=== PATIENT | female | born 1980 | race Asian ===

== ENCOUNTER 2021-06-26 10:00 | Inpatient (IN) | payer OTHER, MEDICAID, SELFPAY ==
[2021-06-26] VITALS (69 sets, daily range): BP systolic 169–257; BP diastolic 86–177; PULSE 78–118; RESP 19–46; TEMP 36.1–36.7; O2SAT 89–99; BMI 44.8
--- NOTE | 2021-06-26 10:10 | DI.RAD.S_ITS ---
PROCEDURE: XR CHEST 1V INDICATIONS: SOB TECHNIQUE: One view of the chest was acquired. COMPARISON: [facility], , CHEST 1 VIEW, 09/16/2016, 0:11. FINDINGS: Surgical changes and devices: None. Lungs and pleura: The left costophrenic sulcus is obscured. The remaining lung zones are well aerated. No pneumothorax or right pleural effusion. Mediastinum: Prominence of the cardiac silhouette, partially exaggerated by technique. Bones and chest wall: No suspicious bony lesions. Overlying soft tissues appear unremarkable. IMPRESSION: No acute cardiopulmonary abnormality. Dictated by: Israel Hope M.D. on 06/26/2021 at 10:31 Approved by: Israel Hope M.D. on 06/26/2021 at 10:32
--- NOTE | 2021-06-26 10:21 | ED.GENADULT ---
HPI - General Adult General Chief complaint: Shortness of Breath/Dyspnea Stated complaint: Trouble breathing Time Seen by Provider: 06/26/21 10:08 Source: patient Mode of arrival: EMS History of Present Illness HPI narrative: Patient is a 41-year-old female with a history of high blood pressure but has not been on any medication for ?sometime ?also has a history of asthma. Is here for evaluation shortness breath. She has had shortness of breath for many weeks if not months. She states that over the past 24 hours her symptoms seem to get worse. No cough. No fevers. Is not wheezing. No recent travel. No chest pain. She states she is having some anxiety. Does have a history of anxiety but she feels that her anxiety is the result of the shortness of breath not causing the shortness of breath. No lower extremity swelling. Has not tried anything for her symptoms prior to arrival. Related Data Previous Rx's Medication Instructions Recorded albuterol sulfate 90 mcg/actuation 2 puff INH Q4HP PRN #1 inh 07/05/16 aerosol inhaler (Ventolin HFA) Allergies Allergy/AdvReac Type Severity Reaction Status Date / Time No Known Drug Allergies Allergy Verified 06/26/21 10:10 Review of Systems Constitutional Constitutional: Reports system reviewed and no additional complaints, except as documented Cardiovascular Cardiovascular: Reports as per HPI and Reports system reviewed and no additional complaints, except as documented Respiratory Respiratory: Reports as per HPI and Reports system reviewed and no additional complaints, except as documented Gastrointestinal Gastrointestinal: Reports as per HPI and Reports system reviewed and no additional complaints, except as documented Integumentary/Breasts Skin/Breast: Reports system reviewed and no additional complaints, except as documented Psychiatric Psychiatric: Reports system reviewed and no additional complaints, except as documented and Reports as per HPI Hematologic/Lymphatic On Anticoagulants: No Patient History Medical History Asthma Hypertension Social History Smoking Status: Former smoker alcohol intake: current Smoking Status: Former smoker alcohol intake frequency: holidays/special occasions only Substance Use Type: does not use Exam Initial Vital Signs Initial Vital Signs: Vital Signs Temperature 98.0 F 06/26/21 10:05 Pulse Rate 118 H 06/26/21 10:05 Respiratory Rate 38 H 06/26/21 10:05 Blood Pressure 257/167 H 06/26/21 10:05 Pulse Oximetry 98 06/26/21 10:05 HENMT Head: normal to inspection and normocephalic Resp Effort & Inspection: not labored and tachypneic Auscultation: clear to auscultation bilaterally Cardio Rate: regular rate Rhythm: regular rhythm GI Inspection: normal to inspection Palpation: soft Skin General: no rashes or lesions noted Neuro General: patient alert, patient awake and patient oriented x3 Extrem General: no pedal edema Psych Other: Anxious appearing Course Orders Ordered: ED Orders 06/26/21 10:10 XR chest 1V Stat COVID19 -Nasal swab/Pre-Proc Stat EKG-12 Lead Stat 06/26/21 10:22 BNP [NT-proBNP (BNP-Adult 18+)] Stat Basic Metabolic Panel Stat Complete Blood Count AUTO DIFF Stat Troponin & CK Cardiac Panel Stat 06/26/21 10:28 D Dimer Stat Partial Thromboplastin Time Stat Prothrombin Time INR Stat 06/26/21 11:44 CT angio chest PE protocol Stat 06/26/21 13:29 Troponin I Stat Budesonide (Budesonide 0.5 Mg/2 Ml Neb) 0.5 mg INH RTBID HANNA Enoxaparin Sodium (Enoxaparin 40 Mg/0.4 Ml Syringe) 40 mg SUBCUT DAILY HANNA Famotidine (Famotidine 20 Mg/2 Ml Vial) 20 mg IV NOW [facility] Last Admin: 06/26/21 14:36 Dose: 20 mg Documented by: OMERO Discontinued Medications Albuterol (Albuterol 2.5 Mg/3 Ml Neb (Adult)) 5 mg INH NOW ONE Stop: 06/26/21 14:32 Last Admin: 06/26/21 14:37 Dose: 5 mg Documented by: OMERO Albuterol/Ipratropium (Albuterol/Ipratropium 3 Ml Ampul) 6 ml INH NOW ONE Stop: 06/26/21 14:46 Last Admin: 06/26/21 14:54 Dose: 6 ml Documented by: TERRY Aspirin (Aspirin 81 Mg Chew Tab) 324 mg PO NOW ONE Stop: 06/26/21 12:37 Last Admin: 06/26/21 12:58 Dose: 324 mg Documented by: EMILY Furosemide (Furosemide 40 Mg/4 Ml Vial) 40 mg IV NOW ONE Stop: 06/26/21 12:37 Last Admin: 06/26/21 12:58 Dose: 40 mg Documented by: EMILY Sodium Chloride (Normal Saline 0.9%) 1,000 mls @ 500 mls/hr IV BOLUS ONE Stop: 06/26/21 12:21 Last Infusion: 06/26/21 11:37 Dose: 0 mls/hr Documented by: Admin: 06/26/21 10:29 Dose: 500 mls/hr Documented by: EMILY Nitroglycerin (Nitroglycerin) 50 mg in 250 mls @ 3 mls/hr IV TITRATE HANNA; Protocol Last Titration: 06/26/21 13:55 Dose: 0 mcg/min, 0 mls/hr Documented by: Titration: 06/26/21 13:52 Dose: 0 mcg/min, 0 mls/hr Documented by: Titration: 06/26/21 13:45 Dose: 20 mcg/min, 6 mls/hr Documented by: Admin: 06/26/21 13:33 Dose: 10 mcg/min, 3 mls/hr Documented by: OMERO Nicardipine HCl 25 mg/ Sodium (Chloride) 250 mls @ 50 mls/hr IV TITRATE HANNA; Protocol Last Titration: 06/26/21 14:55 Dose: 0 mg/hr, 0 mls/hr Documented by: Titration: 06/26/21 14:31 Dose: 0 mg/hr, 0 mls/hr Documented by: Titration: 06/26/21 14:13 Dose: 7.5 mg/hr, 75 mls/hr Documented by: Admin: 06/26/21 14:02 Dose: 5 mg/hr, 50 mls/hr Documented by: OMERO Labetalol HCl (Labetalol 20 Mg/4 Ml Syringe) 10 mg IV NOW ONE Stop: 06/26/21 10:25 Last Admin: 06/26/21 10:30 Dose: 10 mg Documented by: EMILY Labetalol HCl (Labetalol 100 Mg Tablet) 200 mg PO NOW ONE Stop: 06/26/21 17:32 Last Admin: 06/26/21 17:44 Dose: 200 mg Documented by: RAVI Lisinopril (Lisinopril 20 Mg Tablet) 40 mg PO NOW ONE Stop: 06/26/21 17:29 Last Admin: 06/26/21 17:44 Dose: 40 mg Documented by: RAVI Lorazepam (Lorazepam 2 Mg/Ml Inj) 1 mg IV NOW ONE Stop: 06/26/21 10:23 Last Admin: 06/26/21 10:28 Dose: 1 mg Documented by: EMILY Methylprednisolone (Methylprednisolone 125 Mg/2 Ml Vial) 125 mg IV NOW ONE Stop: 06/26/21 14:33 Last Admin: 06/26/21 14:34 Dose: 125 mg Documented by: OMERO Nitroglycerin (Nitroglycerin Oint 1 Inch/Gm Oint...G.) 0.5 inch TOP NOW ONE Stop: 06/26/21 11:26 Last Admin: 06/26/21 11:28 Dose: 0.5 inch Documented by: EMILY Vital Signs Vital signs: Vital Signs - 8 hr 06/26/21 10:05 06/26/21 10:08 06/26/21 10:09 Temperature 98.0 F Pulse Rate 118 H 114 H 113 H Respiratory Rate 38 H 43 H 37 H Blood Pressure 257/167 H 251/159 H Pulse Oximetry 98 98 98 06/26/21 10:30 06/26/21 10:31 06/26/21 11:00 Temperature Pulse Rate 113 H 117 H 89 Respiratory Rate 44 H 43 H 39 H Blood Pressure 249/160 H Pulse Oximetry 96 95 95 06/26/21 11:01 06/26/21 11:16 06/26/21 11:30 Temperature Pulse Rate 91 H 93 H 90 Respiratory Rate 31 H 23 33 H Blood Pressure 193/125 H 240/123 H Pulse Oximetry 95 96 97 06/26/21 11:51 06/26/21 12:00 06/26/21 12:01 Temperature Pulse Rate 91 H 88 90 Respiratory Rate 33 H 40 H 46 H Blood Pressure 220/132 H 221/134 H Pulse Oximetry 96 96 96 06/26/21 12:16 06/26/21 12:20 06/26/21 12:30 Temperature Pulse Rate 94 H 91 H 90 Respiratory Rate 45 H 38 H 38 H Blood Pressure 209/143 H Pulse Oximetry 96 94 97 06/26/21 12:40 06/26/21 12:50 06/26/21 13:00 Temperature Pulse Rate 90 90 85 Respiratory Rate 39 H 43 H 41 H Blood Pressure Pulse Oximetry 96 95 96 06/26/21 13:04 06/26/21 13:10 06/26/21 13:20 Temperature Pulse Rate 90 92 H 92 H Respiratory Rate 39 H 37 H 28 H Blood Pressure 218/129 H Pulse Oximetry 93 96 97 06/26/21 13:30 06/26/21 13:36 06/26/21 13:40 Temperature Pulse Rate 97 H 92 H 91 H Respiratory Rate 44 H 38 H 41 H Blood Pressure 225/112 H Pulse Oximetry 98 97 97 06/26/21 13:41 06/26/21 13:50 06/26/21 13:51 Temperature Pulse Rate 90 91 H 92 H Respiratory Rate 39 H 35 H 37 H Blood Pressure 221/117 H 220/124 H Pulse Oximetry 97 94 96 06/26/21 14:00 06/26/21 14:03 06/26/21 14:05 Temperature Pulse Rate 97 H 95 H 95 H Respiratory Rate 38 H 34 H 33 H Blood Pressure 225/127 H 208/118 H Pulse Oximetry 06/26/21 14:10 06/26/21 14:12 06/26/21 14:15 Temperature Pulse Rate 94 H 95 H 95 H Respiratory Rate 37 H 32 H 36 H Blood Pressure 212/126 H 194/116 H Pulse Oximetry 06/26/21 14:20 06/26/21 14:25 Temperature Pulse Rate 92 H 93 H Respiratory Rate 31 H 34 H Blood Pressure 189/98 H 183/92 H Pulse Oximetry Medical Decision Making Lab Data Lab results reviewed: Yes I reviewed the patient's lab results. Result diagrams: 06/26/21 10:22 06/26/21 10:22 Labs: Lab Results 06/26/21 06/26/21 06/26/21 Range/Units 10:10 10:22 10:22 WBC 11.6 H (4.5-11.0) X10^3/uL RBC 5.18 (4.0-5.2) X10^6/uL Hgb 14.1 (12.0-16.0) g/dL Hct 42.7 (36-46) % MCV 82.5 (80-100) fL MCH 27.2 (26-34) PG MCHC 32.9 (30-36) % RDW 14.4 (11.6-14.8) % Plt Count 355 (150-400) X10^3/uL Neut % (Auto) 72.7 (50-75) % Lymph % (Auto) 18.7 L (25-40) % [place] % (Auto) 4.3 (3-14) % Eos % (Auto) 3.5 (2-4) % Baso % (Auto) 0.8 (0-2) % Neut # (Auto) 8400 H (1098-2034) /uL Lymph # (Auto) 2200 (8256-0864) /uL [place] # (Auto) 500 (0-900) /uL Eos # (Auto) 400 (0-450) /uL Baso # (Auto) 100 (0-100) /uL PT (10.1-12.7) SECONDS INR (0.9-1.3) APTT (26.4-36.2) SECONDS D-Dimer (<230) ng/mL Sodium 135 L (137-145) mmol/L Potassium 3.6 (3.4-5.1) mmol/L Chloride 100 (98-107) mmol/L Carbon Dioxide 26 (22-32) mmol/L BUN 14 (7-17) mg/dL Creatinine 0.89 (0.52-1.04) mg/dL Estimated GFR > 60.0 (>60) mL/min BUN/Creatinine Ratio 15.7 (6-22) Glucose 185 H (70-100) mg/dL Calcium 8.8 (8.4-10.2) mg/dL Total Creatine Kinase 82 (30-135) U/L CK-MB (CK-2) TNP CK-MB (CK-2) Rel Index TNP Troponin I 0.062 H (0.01-0.034) ng/mL NT-Pro-B Natriuret Pep (<125) pg/mL SARS-CoV-2 (PCR) Negative (Negative) 06/26/21 06/26/21 06/26/21 Range/Units 10:22 10:28 10:28 WBC (4.5-11.0) X10^3/uL RBC (4.0-5.2) X10^6/uL Hgb (12.0-16.0) g/dL Hct (36-46) % MCV (80-100) fL MCH (26-34) PG MCHC (30-36) % RDW (11.6-14.8) % Plt Count (150-400) X10^3/uL Neut % (Auto) (50-75) % Lymph % (Auto) (25-40) % [place] % (Auto) (3-14) % Eos % (Auto) (2-4) % Baso % (Auto) (0-2) % Neut # (Auto) (0576-9589) /uL Lymph # (Auto) (2294-5619) /uL [place] # (Auto) (0-900) /uL Eos # (Auto) (0-450) /uL Baso # (Auto) (0-100) /uL PT 12.7 (10.1-12.7) SECONDS INR 1.1 (0.9-1.3) APTT 33 (26.4-36.2) SECONDS D-Dimer 299 H (<230) ng/mL Sodium (137-145) mmol/L Potassium (3.4-5.1) mmol/L Chloride (98-107) mmol/L Carbon Dioxide (22-32) mmol/L BUN (7-17) mg/dL Creatinine (0.52-1.04) mg/dL Estimated GFR (>60) mL/min BUN/Creatinine Ratio (6-22) Glucose (70-100) mg/dL Calcium (8.4-10.2) mg/dL Total Creatine Kinase (30-135) U/L CK-MB (CK-2) CK-MB (CK-2) Rel Index Troponin I (0.01-0.034) ng/mL NT-Pro-B Natriuret Pep 5080 H (<125) pg/mL SARS-CoV-2 (PCR) (Negative) 06/26/21 Range/Units 13:29 WBC (4.5-11.0) X10^3/uL RBC (4.0-5.2) X10^6/uL Hgb (12.0-16.0) g/dL Hct (36-46) % MCV (80-100) fL MCH (26-34) PG MCHC (30-36) % RDW (11.6-14.8) % Plt Count (150-400) X10^3/uL Neut % (Auto) (50-75) % Lymph % (Auto) (25-40) % [place] % (Auto) (3-14) % Eos % (Auto) (2-4) % Baso % (Auto) (0-2) % Neut # (Auto) (6708-9625) /uL Lymph # (Auto) (4244-6607) /uL [place] # (Auto) (0-900) /uL Eos # (Auto) (0-450) /uL Baso # (Auto) (0-100) /uL PT (10.1-12.7) SECONDS INR (0.9-1.3) APTT (26.4-36.2) SECONDS D-Dimer (<230) ng/mL Sodium (137-145) mmol/L Potassium (3.4-5.1) mmol/L Chloride (98-107) mmol/L Carbon Dioxide (22-32) mmol/L BUN (7-17) mg/dL Creatinine (0.52-1.04) mg/dL Estimated GFR (>60) mL/min BUN/Creatinine Ratio (6-22) Glucose (70-100) mg/dL Calcium (8.4-10.2) mg/dL Total Creatine Kinase (30-135) U/L CK-MB (CK-2) CK-MB (CK-2) Rel Index Troponin I 0.064 H (0.01-0.034) ng/mL NT-Pro-B Natriuret Pep (<125) pg/mL SARS-CoV-2 (PCR) (Negative) Imaging Data Chest x-ray: Radiologist's Impression: [address] [address] XRay Report Signed Patient: Rula Jerome V MR#: [id number] : 1980 Acct:[id number] Age/Sex: 41 / F Date of Service: 06/26/21 Loc: ED Accession Number: [id number] ?? Procedure: XR chest 1V Ordering Provider: Breezy Ma D.O. PROCEDURE:? XR CHEST 1V ? INDICATIONS:? SOB ? TECHNIQUE:? One view of the chest was acquired.? ? COMPARISON:? [facility], CR, CHEST 1 VIEW, 09/16/2016, 0:11. ? FINDINGS:? ? Surgical changes and devices:? None.? ? Lungs and pleura:? The left costophrenic sulcus is obscured.? The remaining lung zones are well aerated.? No pneumothorax or right pleural effusion.? ? Mediastinum:? Prominence of the cardiac silhouette, partially exaggerated by technique. ? Bones and chest wall:? No suspicious bony lesions.? Overlying soft tissues appear unremarkable.? ? IMPRESSION:? No acute cardiopulmonary abnormality. ? ? Dictated by: Israel Hope M.D. on 06/26/2021 at 10:31 ? ? Approved by: Israel Hope M.D. on 06/26/2021 at 10:32? ECG Data Attestation: I personally reviewed and interpreted this ECG as follows: Interpretation: Sinus rhythm Ventricular rate 90 Normal axis LVH QTC [address] T wave changes MDM Narrative Medical decision making narrative: Patient arrived hypertensive. Short of breath. Clear lung exam. No chest pain. Troponin elevated. BNP elevated. Was given aspirin. Was given nitro and labetalol with only minor improvement of her blood pressure for short period of time. CT scan shows no signs of pulmonary embolism. Given Lasix. Initially started nitro drip for hypertensive emergency. Discussed the case with Dr. Mancini with Internal Medicine who recommended switching to a nicardipine drip. Shortly after starting this medication patient became short of breath and developed wheezing. She does have a history of asthma however did have some concern about allergic reaction to the nicardipine. The drip was stopped. She was given albuterol and steroids which improved her symptoms. Will continue with admission to the hospital. I did discuss all of the above with the patient and she expressed understanding and agreement. Critical Care Time Critical Care Time Critical Care Time: Yes Total Critical Care Time: 50 Attestation: The high probability of a clinically significant, sudden or life threatening deterioration of the cardiovascular and respiratory system(s) required my full and direct attention, intervention and personal management. The aggregate critical care time was [50 minutes. This time is in addition to time spent performing reported procedures but includes the following: [X Data Review and interpretation [X Patient assessment and monitoring of vital signs [X Documentation [X Medication orders and management Discharge Plan Departure Patient Disposition: Admitted As Inpatient Clinical Impression: Hypertensive emergency Admit Date/Time: 06/26/21 14:28 Admit Provider: Bailey Mancini
[2021-06-26] MEDS: LORazepam 2 MG/ML INJ 1 MG IV (10:28)
[2021-06-26] MEDS: SODIUM CHLORIDE 0.9% 1,000 ML 500 ML IV (10:29)
[2021-06-26] MEDS: LABETALOL 20 MG/4 ML SYRINGE 10 MG IV (10:30)
[2021-06-26 10:35] LABS: COVID19 -Nasal RAPID Negative (Negative)
[2021-06-26 10:35] LABS: Add Manual Diff / Slide Review NO; Basophils Absolute Auto 100 /uL (0-100); Basophils Percent Auto 0.8 % (0-2); Eosinophils Absolute Auto 400 /uL (0-450); Eosinophils Percent Auto 3.5 % (2-4); Hematocrit 42.7 % (36-46); Hemoglobin 14.1 g/dL (12.0-16.0); Lymphocytes Absolute Auto 2200 /uL (1100-4500); Lymphocytes Percent Auto 18.7 % (25-40); Mean Corpuscular HGB Conc 32.9 % (30-36); Mean Corpuscular Hemoglobin 27.2 PG (26-34); Mean Corpuscular Volume 82.5 fL (80-100); Monocytes Absolute Auto 500 /uL (0-900); Monocytes Percent Auto 4.3 % (3-14); Neutrophils Absolute Auto 8400 /uL (1500-7000); Neutrophils Percent Auto 72.7 % (50-75); Platelet Count 355 X10^3/uL (150-400); Red Blood Cell Count 5.18 X10^6/uL (4.0-5.2); Red Cell Distribution Width 14.4 % (11.6-14.8); White Blood Cell Count 11.6 X10^3/uL (4.5-11.0)
[2021-06-26 10:51] LABS: BUN Creatinine Ratio 15.7 (6-22); Blood Urea Nitrogen 14 mg/dL (7-17); Calcium 8.8 mg/dL (8.4-10.2); Carbon Dioxide 26 mmol/L (22-32); Chloride 100 mmol/L (98-107); Creatine Kinase 82 U/L (30-135); Estimated Glomerular Filt Rate > 60.0 mL/min (>60); Glucose 185 mg/dL (70-100); HEMOLYSIS < 15 (0-50); Potassium 3.6 mmol/L (3.4-5.1); Sodium 135 mmol/L (137-145)
[2021-06-26 11:02] LABS: Troponin I 0.062 ng/mL (0.01-0.034)
[2021-06-26 11:20] LABS: NT-proBNP (BNP-Adult 18+) 5080 pg/mL (<125)
[2021-06-26 11:23] LABS: D Dimer 299 ng/mL (<230)
[2021-06-26] MEDS: NITROGLYCERIN OINT 1 INCH/GM OINT...G. 0.5 INCH TOP (11:28)
--- NOTE | 2021-06-26 11:44 | DI.CT.S_ITS ---
PROCEDURE: CT ANGIO CHEST PE PROTOCOL INDICATIONS: Chest pain, shortness of breath, tachycardia TECHNIQUE: After the administration of intravenous contrast, 2 mm thick sections acquired from the pulmonary apices to the posterior costophrenic angles. 3-dimensional maximum intensity projection (MIP) coronal and sagittal reformats were then acquired through the thorax. For radiation dose reduction, the following was used: automated exposure control, adjustment of mA and/or kV according to patient size. COMPARISON: [facility], , XR CHEST 1V, 06/26/2021, 10:14. [facility], , CHEST 1 VIEW, 09/16/2016, 0:11. FINDINGS: Image quality: Excellent. Pulmonary arteries: Pulmonary arteries are normal in size, and demonstrate no intraluminal filling defects to suggest central pulmonary embolism. Lungs and pleura: There is bronchial wall thickening bilaterally. Mild subpleural septal thickening. Small bilateral pleural effusions bilaterally bilaterally. No pneumothorax. Central and peripheral airways are patent. Mediastinum: Heart size is mildly increased. Small pericardial effusion. Mild mediastinal or hilar adenopathy. For example there is a 1.1 cm right paratracheal lymph node and a 1.1 x 1.6 cm AP window lymph node. Enlarged right hilar lymph node measures 1.5 x 1.9 cm. Thoracic aorta is normal in caliber and enhancement. Esophagus is normal in caliber, without hiatal hernia. Bones and chest wall: No suspicious bony lesions. Ribs and thoracic spine appear intact throughout. Thyroid gland is normal. No axillary or supraclavicular adenopathy. Abdomen: Visualized upper abdominal solid organs appear normal in the early arterial phase of enhancement. IMPRESSION: 1. No evidence for pulmonary embolism. 2. Mild bronchial wall thickening bilaterally consistent bronchitis. 3. Moderate cardiomegaly and small pericardial effusion. 4. Mild subpleural septal thickening and small bilateral pleural effusions consistent with mild CHF. 5. Mild mediastinal and hilar lymphadenopathy, nonspecific. Dictated by: Milli Rain M.D. on 06/26/2021 at 11:55 Approved by: Milli Rain M.D. on 06/26/2021 at 12:17
[2021-06-26] MEDS: ASPIRIN 81 MG CHEW TAB 324 MG PO (12:58)
[2021-06-26] MEDS: FUROSEMIDE 40 MG/4 ML VIAL IV (12:58)
[2021-06-26] MEDS: NITROGLYCERIN 50 MG/250 ML INFUS..BTL IV (13:33)
[2021-06-26 13:37] LABS: INR 1.1 (0.9-1.3); Prothrombin Time 12.7 SECONDS (10.1-12.7)
[2021-06-26 13:39] LABS: PTT Partial Thromboplastin Tim 33 SECONDS (26.4-36.2)
[2021-06-26 13:58] LABS: Troponin I 0.064 ng/mL (0.01-0.034)
[2021-06-26] MEDS: NICARDIPINE 25 MG in SODIUM CHLORIDE 0.9% 240 ML 50 ML IV (14:02)
--- NOTE | 2021-06-26 14:30 | PC.NURSE ---
Patient c/o allergic reaction, notified MD in change in condition. RN who assessed patient prior to this RN taking over also to bedside and confirms change in condition. Nicardipine stopped per MD. New orders placed.
[2021-06-26] MEDS: methylPREDNISolone 125 MG/2 ML VIAL IV (14:34)
[2021-06-26] MEDS: FAMOTIDINE 20 MG/2 ML VIAL IV (14:36)
[2021-06-26] MEDS: ALBUTEROL 2.5 MG/3 ML NEB (ADULT) 5 MG INH (14:37)
[2021-06-26] MEDS: ALBUTEROL/IPRATROPIUM 3 ML AMPUL 6 ML INH (14:54)
--- NOTE | 2021-06-26 17:32 | DI.ECHO.S_ITS ---
[facility] +---------+ : : [address] [place] [address] : : : : [id number] : : : : Phone: [phone] Echocardiogram Report + + :Name: CASSANDRA MORRIS V Study Date: 06/27/2021 Height: 63 in : :[facility] ReadingLocation: Weight: 253 lb : : Gender: Female BSA: 2.1 m2 : :: 1980 Age: 41 yrs BP: 167/83 mmHg: :Reason For Study: New on-set heart failure : : Performed By: Juan Ortega : + + Interpretation Summary Left ventricular ejection fraction is estimated to be 55 +/- 5%. The right ventricle is mildly dilated. The right ventricular systolic function is normal. The left atrium is moderately dilated. The right atrium is moderately dilated. A patent foramen ovale is suspected. REC: Bubble study There is mild mitral regurgitation. There is mild aortic regurgitation. There is mild to moderate tricuspid regurgitation. The right ventricular systolic pressure is estimated to be at least 25 mmHg based on an estimated right atrial pressure of 3 mm Hg. Procedure: A two-dimensional transthoracic echocardiogram with color flow and Doppler was performed. There is no prior echocardiogram noted for this patient. The patient was in normal sinus rhythm during the exam. Left Ventricle: The left ventricle is normal in size. There is moderate concentric left ventricular hypertrophy. Left ventricular ejection fraction is estimated to be 55 +/- 5%. Left ventricular wall motion is normal. Right Ventricle: The right ventricle is mildly dilated. The right ventricular systolic function is normal. Atria: The left atrium is moderately dilated. The right atrium is moderately dilated. A patent foramen ovale is suspected. Mitral Valve: The mitral valve leaflets appear mildly thickened, but open well. There is mild mitral regurgitation. Aortic Valve: The aortic valve is trileaflet. The aortic valve opens well. There is mild aortic regurgitation. Tricuspid Valve: The tricuspid valve is normal. There is mild to moderate tricuspid regurgitation. The right ventricular systolic pressure is estimated to be at least 25 mmHg based on an estimated right atrial pressure of 3 mm Hg. Pulmonic Valve: The pulmonic valve leaflets are thin and pliable; valve motion is normal. There is trace pulmonic regurgitation. Great Vessels: The aortic root is normal size. The ascending aorta is mildly enlarged. The aortic arch is normal in size. The IVC is of normal diameter and collapses greater than 50% with a sniff. This suggests a low right atrial pressure of 3 mm Hg. Pericardium/ Pleura There is no pericardial effusion. There is an anterior echo-free space consistent with a fat pad. There is no pleural effusion. MMode/2D Measurements & Calculations LVIDd: 3.5 cm LVOT diam: 2.3 cm LVIDs: 2.5 cm Ao root diam: 3.4 cm FS: 26.3 % asc Aorta Diam: 3.9 cm IVSd: 1.5 cm Ao Arch Diam (Prox Trans): 3.0 cm LVPWd: 2.0 cm LV sofia. diameter/BSA (cm/m^2): 1.6 LV sys. diameter/BSA (cm/m^2): 1.2 LA A2 area: 27.6 cm2 RA long axis: 6.0 cm LA A4 area: 23.0 cm2 RA area: 22.4 cm2 LA length (vol): 6.2 cm RA vol: 70.7 ml LA vol: 86.0 ml RA : 33.1 ml/m2 LA vol index: 40.2 ml/m2 IVC diam: 2.1 cm TAPSE: 1.9 cm Doppler Measurements & Calculations Ao V2 max: 160.0 cm/sec LVOT Max Fortunato: 124.7 cm/sec Ao V2 mean: 122.2 cm/sec LV V1 max P.2 mmHg Ao max P.2 mmHg LV V1 VTI: 22.7 cm Ao mean P.4 mmHg DANIEL(I,D): 3.4 cm2 Ao V2 VTI: 28.4 cm DANIEL(V,D): 3.3 cm2 sev ratio: 0.80 DANIEL indexed to BSA (cm^2/m^2): 1.6 MV E max fortunato: 81.6 cm/sec TR max fortunato: 232.0 cm/sec MV A max fortunato: 62.2 cm/sec TR max P.5 mmHg MV E/A: 1.3 PA V2 max: 63.0 cm/sec Med Peak E' Fortunato: 3.2 cm/sec PA V2 mean: 47.4 cm/sec E/E' med: 25.7 PA mean P.95 mmHg Lat Peak E' Fortunato: 6.1 cm/sec PA pr(Accel): 22.5 mmHg E/E' lat: 13.3 E/e' average: 19.5 MV dec time: 0.21 sec SV(LVOT): 96.8 ml Reading Physician:12:59 PM
--- NOTE | 2021-06-26 17:33 | PM.HP.1 ---
History of Present Illness History of Present Illness Chief complaint: Trouble breathing Narrative: 41yo female with a hx of asthma and hypertension that presents with SOB. She states this has been ongoing for about a month or so. However, it's progressed to the point where she has a hard time laying down flat without becoming SOB. This particular feature started 1-2 days ago. This is what prompted her to present to the ER. She called the ambulance herself from home. She denies that this has ever happened before. She denies associated CP, pleuritic pain, hemoptysis, peripheral edema, PND, n/v, abd pain, MORILLO's, diaphoresis, fever/chills, recent URI sxs. She does endorse anxiety. However, she believes it's the SOB that makes her anxious. She was on 2 anti-HTN's in the past, she cannot recall their names, along with maintenance inhaler for asthma. However, she has not had these medicine in over 2 years due to lack of health insurance. Of note, the patient admits to taking copious amounts of Sudafed at home for rhinorrhea. She was aware that it increases BP, but she didn't realize to what degree. She has a PSH of nasal polyp removal, along with deviated septum correction. She denies any recent sexual activity and states it would be a miracle if she's . She denies EtOH, illicit drug use. She has a remote tobacco smoking history. Family hx is positive for father with DM II and mother with hypertension. She denies any medication allergies. She does endorse severe seasonal allergies. Patient History Medical History Asthma Hypertension Family & Social History Safety & Behavioral: Feels Safe in Current Yes Environment Been Physically Hurt or No Threatened By a Person Suicidal Ideation Description None Suicide Plan Description No Plan Tobacco & Substance use: Tobacco type cigarettes Smoking Status Former smoker alcohol intake current alcohol intake frequency holiday/special occasion Substance Use Type does not use Meds Home Medications and Allergies Home Medications Medication Instructions Recorded Confirmed Type albuterol sulfate 90 mcg/actuation 2 puff INH Q4HP PRN #1 inh 07/05/16 06/26/21 Rx aerosol inhaler (Ventolin HFA) Allergies Allergy/AdvReac Type Severity Reaction Status Date / Time No Known Drug Allergies Allergy Verified 06/26/21 10:10 Review of Systems Constitutional Comments: Denies fever/chills, night sweats, weight loss, appetite loss. Eyes Comments: Denies vision changes. Cardiovascular Comments: Denies CP, palpitations, peripheral edema. Respiratory Comments: Endorses SOB. Denies cough, URI sxs, wheezing. Gastrointestinal Comments: Denies abd pain, n/v/d, flank pain. Neurologic Comments: Denies MORILLO, bowel/bladder incontinence. Exam Vital Signs (past 8 hours): - 06/26/21 10:05 06/26/21 10:08 06/26/21 10:09 Temperature 98.0 F Pulse Rate 118 H 114 H 113 H Respiratory Rate 38 H 43 H 37 H Blood Pressure 257/167 H 251/159 H Pulse Oximetry 98 98 98 06/26/21 10:30 06/26/21 10:31 06/26/21 11:00 Temperature Pulse Rate 113 H 117 H 89 Respiratory Rate 44 H 43 H 39 H Blood Pressure 249/160 H Pulse Oximetry 96 95 95 06/26/21 11:01 06/26/21 11:16 06/26/21 11:30 Temperature Pulse Rate 91 H 93 H 90 Respiratory Rate 31 H 23 33 H Blood Pressure 193/125 H 240/123 H Pulse Oximetry 95 96 97 06/26/21 11:51 06/26/21 12:00 06/26/21 12:01 Temperature Pulse Rate 91 H 88 90 Respiratory Rate 33 H 40 H 46 H Blood Pressure 220/132 H 221/134 H Pulse Oximetry 96 96 96 06/26/21 12:16 06/26/21 12:20 06/26/21 12:30 Temperature Pulse Rate 94 H 91 H 90 Respiratory Rate 45 H 38 H 38 H Blood Pressure 209/143 H Pulse Oximetry 96 94 97 06/26/21 12:40 06/26/21 12:50 06/26/21 13:00 Temperature Pulse Rate 90 90 85 Respiratory Rate 39 H 43 H 41 H Blood Pressure Pulse Oximetry 96 95 96 06/26/21 13:04 06/26/21 13:10 06/26/21 13:20 Temperature Pulse Rate 90 92 H 92 H Respiratory Rate 39 H 37 H 28 H Blood Pressure 218/129 H Pulse Oximetry 93 96 97 06/26/21 13:30 06/26/21 13:36 06/26/21 13:40 Temperature Pulse Rate 97 H 92 H 91 H Respiratory Rate 44 H 38 H 41 H Blood Pressure 225/112 H Pulse Oximetry 98 97 97 06/26/21 13:41 06/26/21 13:50 06/26/21 13:51 Temperature Pulse Rate 90 91 H 92 H Respiratory Rate 39 H 35 H 37 H Blood Pressure 221/117 H 220/124 H Pulse Oximetry 97 94 96 06/26/21 14:00 06/26/21 14:03 06/26/21 14:05 Temperature Pulse Rate 97 H 95 H 95 H Respiratory Rate 38 H 34 H 33 H Blood Pressure 225/127 H 208/118 H Pulse Oximetry 06/26/21 14:10 06/26/21 14:12 06/26/21 14:15 Temperature Pulse Rate 94 H 95 H 95 H Respiratory Rate 37 H 32 H 36 H Blood Pressure 212/126 H 194/116 H Pulse Oximetry 06/26/21 14:20 06/26/21 14:25 06/26/21 14:30 Temperature Pulse Rate 92 H 93 H 94 H Respiratory Rate 31 H 34 H 30 H Blood Pressure 189/98 H 183/92 H 169/88 H Pulse Oximetry 06/26/21 14:36 06/26/21 14:40 06/26/21 14:41 Temperature Pulse Rate 97 H 92 H 92 H Respiratory Rate 30 H 30 H 22 Blood Pressure 201/117 H 176/95 H Pulse Oximetry 89 L 89 L 90 L 06/26/21 14:45 06/26/21 14:50 06/26/21 14:54 Temperature Pulse Rate 93 H 94 H 93 H Respiratory Rate 25 H 31 H 20 Blood Pressure 185/98 H 189/110 H Pulse Oximetry 89 L 90 L 92 06/26/21 14:56 06/26/21 15:00 06/26/21 15:05 Temperature Pulse Rate 91 H 92 H 95 H Respiratory Rate 25 H 27 H 23 Blood Pressure 210/122 H 198/117 H 196/125 H Pulse Oximetry 91 91 90 L 06/26/21 15:10 06/26/21 15:15 06/26/21 15:20 Temperature Pulse Rate 93 H 92 H 93 H Respiratory Rate 29 H 32 H 32 H Blood Pressure 201/123 H 199/118 H 204/126 H Pulse Oximetry 91 89 L 96 06/26/21 15:25 06/26/21 15:30 06/26/21 15:35 Temperature Pulse Rate 93 H 92 H 96 H Respiratory Rate 32 H 33 H 35 H Blood Pressure 208/116 H 189/113 H 238/127 H Pulse Oximetry 96 97 98 06/26/21 15:40 06/26/21 15:41 06/26/21 15:45 Temperature Pulse Rate 99 H 100 H 96 H Respiratory Rate 37 H 32 H 32 H Blood Pressure 247/177 H 218/122 H Pulse Oximetry 90 L 96 99 06/26/21 15:50 06/26/21 15:55 06/26/21 16:00 Temperature Pulse Rate 94 H 95 H 94 H Respiratory Rate 34 H 27 H 25 H Blood Pressure 225/122 H 238/128 H Pulse Oximetry 97 97 96 06/26/21 16:01 06/26/21 16:05 06/26/21 16:10 Temperature Pulse Rate 95 H 94 H 94 H Respiratory Rate 32 H 22 34 H Blood Pressure 216/121 H 208/121 H 207/134 H Pulse Oximetry 96 93 92 06/26/21 16:16 06/26/21 16:20 06/26/21 16:25 Temperature Pulse Rate 97 H 97 H 98 H Respiratory Rate 19 33 H 36 H Blood Pressure 230/132 H 223/136 H 251/140 H Pulse Oximetry 93 95 94 06/26/21 16:30 06/26/21 17:30 Temperature 97.0 F L Pulse Rate 97 H 98 H Respiratory Rate 33 H 24 Blood Pressure 252/143 H 227/123 H Pulse Oximetry 94 97 Oxygen Delivery Method Room Air Const Other: Patient laying in bed comfortably upon my entering the room, in no apparent acute distress. Eyes Other: No scleral icterus appreciated. Neck Other: No carotid bruits appreciated. No JVD. Resp Other: Scattered wheezing appreciated diffusely, faint. Cardio Other: Tachycardic rate, regular rhythm. S1 and S2 heart sounds normal. No murmurs appreciated. No peripheral edema noted. GI Other: Soft, non-distended, non-tender. Bowel sounds present. Extrem Other: Palpable and bilaterally equal radial and dorsalis pedis pulses. Objective Labs Result Diagrams: 06/26/21 10:22 06/26/21 10:22 Labs: Laboratory Results - last 24 hr 06/26/21 06/26/2106/26/22 10:10 10:22 10:22 WBC 11.6 H RBC 5.18 Hgb 14.1 Hct 42.7 MCV 82.5 MCH 27.2 MCHC 32.9 RDW 14.4 Plt Count 355 Neut % (Auto) 72.7 Lymph % (Auto) 18.7 L Daniels % (Auto) 4.3 Eos % (Auto) 3.5 Baso % (Auto) 0.8 Neut # (Auto) 8400 H Lymph # (Auto) 2200 Daniels # (Auto) 500 Eos # (Auto) 400 Baso # (Auto) 100 PT INR APTT D-Dimer Sodium 135 L Potassium 3.6 Chloride 100 Carbon Dioxide 26 BUN 14 Creatinine 0.89 Estimated GFR > 60.0 BUN/Creatinine Ratio 15.7 Glucose 185 H Calcium 8.8 Total Creatine Kinase 82 CK-MB (CK-2) TNP CK-MB (CK-2) Rel Index TNP Troponin I 0.062 H NT-Pro-B Natriuret Pep SARS-CoV-2 (PCR) Negative 06/26/21 06/26/21 06/26/21 10:22 10:28 10:28 WBC RBC Hgb Hct MCV MCH MCHC RDW Plt Count Neut % (Auto) Lymph % (Auto) Daniels % (Auto) Eos % (Auto) Baso % (Auto) Neut # (Auto) Lymph # (Auto) Daniels # (Auto) Eos # (Auto) Baso # (Auto) PT 12.7 INR 1.1 APTT 33 D-Dimer 299 H Sodium Potassium Chloride Carbon Dioxide BUN Creatinine Estimated GFR BUN/Creatinine Ratio Glucose Calcium Total Creatine Kinase CK-MB (CK-2) CK-MB (CK-2) Rel Index Troponin I NT-Pro-B Natriuret Pep 5080 H SARS-CoV-2 (PCR) 06/26/21 13:29 WBC RBC Hgb Hct MCV MCH MCHC RDW Plt Count Neut % (Auto) Lymph % (Auto) Daniels % (Auto) Eos % (Auto) Baso % (Auto) Neut # (Auto) Lymph # (Auto) Daniels # (Auto) Eos # (Auto) Baso # (Auto) PT INR APTT D-Dimer Sodium Potassium Chloride Carbon Dioxide BUN Creatinine Estimated GFR BUN/Creatinine Ratio Glucose Calcium Total Creatine Kinase CK-MB (CK-2) CK-MB (CK-2) Rel Index Troponin I 0.064 H NT-Pro-B Natriuret Pep SARS-CoV-2 (PCR) Assessment & Plan Assessment & Plan narrative: Assessment: 1. Hypertensive emergency, likely due to extensive use of Sudafed at home 2. Coronary supply/demand mismatch, likely due to HTN emergency 3. Hx of asthma 4. Obesity, class 3 Plan: 1. Patient could not tolerate IV nitroglycerin. She developed [id number] symptoms to IV nicardipine. Therefore, will bring BP down by no more than 15-25% today with Labetalol 200 mg one-time and Lisinopril 40 mg one-time. Can uptitrate labetalol as needed, to achieve BP goal of ~ 160/100 mm Hg over the next 24 hours. 2. The patient's high BP likely contributed to a slight troponin leak. She denies typical CP sxs. EKG unremarkable. Echocardiogram pending. 3. The patient takes albuterol at home, which could have contributed to problem 1, too. Will start inhaled budesonide bid scheduled. Will hold off on Duo-Neb for now given albuterol beta agnoist activity. 4. Likely contributing to problems above. Counseling provided. VTE prophylaxis: Lovenox 40 mg daily Time Spent With Patient Critical Care time: I spent a total of [] minutes of critical care time on this patient's care today; this time is exclusive of procedural time. Quality VTE Deep Vein Thrombosis/Pulmonary Embolism Present on Admission: No
[2021-06-26] MEDS: LABETALOL 100 MG TABLET 200 MG PO (17:44)
[2021-06-26] MEDS: lisinopriL 20 MG TABLET 40 MG PO (17:44)
--- NOTE | 2021-06-26 17:51 | PC.NURSE ---
Admission: Pt arrived to floor from ER. RA, SOB With any activity, exertional wheeze noted. BSC to void, clear urine. BP on arrival 227/123 HR 97. Denies chest pain, reports periorbital itching, and swelling, difficult to appreciate. IV SL to R AC. Dr Horvath notified of patient arrival, Dr Mancini seeing patient. PO labatolol and lisinopril given.
--- NOTE | 2021-06-26 18:22 | PC.NURSE ---
Pt is comfortable, sitting upright in bed, I don't feel great, but better than when I got here Rubbing at eyes, and requesting meal. Low sodium diet ordered. Pt is using BSC and shows substantial fatigue with getting to BSC. Increased WOB. PO Labetalol and Lisinopril given, Recheck BP 199/102, attemtpting to reduce BP to 170/range for first 24 hours. Education provided to Pt re POC and rational for slow reduction of BP with medication, jus given the intolerance for titratable IV meds.
[2021-06-26 19:12] LABS: Free T4, Direct Thyroxine 1.46 ng/dL (0.78-2.19)
--- NOTE | 2021-06-26 20:12 | P.TELICUCN_ITS ---
History of Present Illness Consult details Chief complaint: Trouble breathing :: This patient was seen via real time interactive two-way audiovisual telecommunication. Narrative: Patient is a 41 YO F wiht history of asthma and hypertension presents with shortness of breath. Associated with orthopnea. On presentation she was found to have SBP ~230s. CT chest showed smoother interlobular septal thickening and bilateral pleural effusion. Started on nicardipine infusion and developed some rash which was switched to labetalol IV and lisinopril PO. Diuresed with lasix 40 mg IV and net negative ~3.2 liters. Admitted to ICU for further management. [facility] Medical History Asthma Hypertension Social History Smoking Status: Former smoker alcohol intake: current Current Medications Current Medications Medications: Home Medications albuterol sulfate 90 mcg/actuation aerosol inhaler (Ventolin HFA) 2 puff INH Q4HP PRN #1 inh 07/05/16 [Rx Confirmed 06/26/21] Visit Medications (administered) Generic Name Dose Route Start Last Admin Trade Name Freq PRN Reason Stop Dose Admin Famotidine 20 mg 06/26/21 14:45 06/26/21 14:36 Famotidine 20 Mg/2 Ml Vial IV 20 mg NOW HANNA Administration Exam Vital Signs (past 8 hours): - 06/26/21 12:16 06/26/21 12:20 06/26/21 12:30 Temperature Pulse Rate 94 H 91 H 90 Respiratory Rate 45 H 38 H 38 H Blood Pressure 209/143 H Pulse Oximetry 96 94 97 06/26/21 12:40 06/26/21 12:50 06/26/21 13:00 Temperature Pulse Rate 90 90 85 Respiratory Rate 39 H 43 H 41 H Blood Pressure Pulse Oximetry 96 95 96 06/26/21 13:04 06/26/21 13:10 06/26/21 13:20 Temperature Pulse Rate 90 92 H 92 H Respiratory Rate 39 H 37 H 28 H Blood Pressure 218/129 H Pulse Oximetry 93 96 97 06/26/21 13:30 06/26/21 13:36 06/26/21 13:40 Temperature Pulse Rate 97 H 92 H 91 H Respiratory Rate 44 H 38 H 41 H Blood Pressure 225/112 H Pulse Oximetry 98 97 97 06/26/21 13:41 06/26/21 13:50 06/26/21 13:51 Temperature Pulse Rate 90 91 H 92 H Respiratory Rate 39 H 35 H 37 H Blood Pressure 221/117 H 220/124 H Pulse Oximetry 97 94 96 06/26/21 14:00 06/26/21 14:03 06/26/21 14:05 Temperature Pulse Rate 97 H 95 H 95 H Respiratory Rate 38 H 34 H 33 H Blood Pressure 225/127 H 208/118 H Pulse Oximetry 06/26/21 14:10 06/26/21 14:12 06/26/21 14:15 Temperature Pulse Rate 94 H 95 H 95 H Respiratory Rate 37 H 32 H 36 H Blood Pressure 212/126 H 194/116 H Pulse Oximetry 06/26/21 14:20 06/26/21 14:25 06/26/21 14:30 Temperature Pulse Rate 92 H 93 H 94 H Respiratory Rate 31 H 34 H 30 H Blood Pressure 189/98 H 183/92 H 169/88 H Pulse Oximetry 06/26/21 14:36 06/26/21 14:40 06/26/21 14:41 Temperature Pulse Rate 97 H 92 H 92 H Respiratory Rate 30 H 30 H 22 Blood Pressure 201/117 H 176/95 H Pulse Oximetry 89 L 89 L 90 L 06/26/21 14:45 06/26/21 14:50 06/26/21 14:54 Temperature Pulse Rate 93 H 94 H 93 H Respiratory Rate 25 H 31 H 20 Blood Pressure 185/98 H 189/110 H Pulse Oximetry 89 L 90 L 92 06/26/21 14:56 06/26/21 15:00 06/26/21 15:05 Temperature Pulse Rate 91 H 92 H 95 H Respiratory Rate 25 H 27 H 23 Blood Pressure 210/122 H 198/117 H 196/125 H Pulse Oximetry 91 91 90 L 06/26/21 15:10 06/26/21 15:15 06/26/21 15:20 Temperature Pulse Rate 93 H 92 H 93 H Respiratory Rate 29 H 32 H 32 H Blood Pressure 201/123 H 199/118 H 204/126 H Pulse Oximetry 91 89 L 96 06/26/21 15:25 06/26/21 15:30 06/26/21 15:35 Temperature Pulse Rate 93 H 92 H 96 H Respiratory Rate 32 H 33 H 35 H Blood Pressure 208/116 H 189/113 H 238/127 H Pulse Oximetry 96 97 98 06/26/21 15:40 06/26/21 15:41 06/26/21 15:45 Temperature Pulse Rate 99 H 100 H 96 H Respiratory Rate 37 H 32 H 32 H Blood Pressure 247/177 H 218/122 H Pulse Oximetry 90 L 96 99 06/26/21 15:50 06/26/21 15:55 06/26/21 16:00 Temperature Pulse Rate 94 H 95 H 94 H Respiratory Rate 34 H 27 H 25 H Blood Pressure 225/122 H 238/128 H Pulse Oximetry 97 97 96 06/26/21 16:01 06/26/21 16:05 06/26/21 16:10 Temperature Pulse Rate 95 H 94 H 94 H Respiratory Rate 32 H 22 34 H Blood Pressure 216/121 H 208/121 H 207/134 H Pulse Oximetry 96 93 92 06/26/21 16:16 06/26/21 16:20 06/26/21 16:25 Temperature Pulse Rate 97 H 97 H 98 H Respiratory Rate 19 33 H 36 H Blood Pressure 230/132 H 223/136 H 251/140 H Pulse Oximetry 93 95 94 06/26/21 16:30 06/26/21 17:30 06/26/21 17:44 Temperature 97.0 F L Pulse Rate 97 H 98 H Respiratory Rate 33 H 24 Blood Pressure 252/143 H 227/123 H 227/104 H Pulse Oximetry 94 97 Oxygen Delivery Method Room Air Narrative Exam Narrative: Sleepy but arousable and following simple commands Objective Labs Result Diagrams: 06/26/21 10:22 06/26/21 10:22 Labs: Laboratory Results - last 24 hr 06/26/21 06/26/21 06/26/21 10:10 10:15 10:22 WBC 11.6 H RBC 5.18 Hgb 14.1 Hct 42.7 MCV 82.5 MCH 27.2 MCHC 32.9 RDW 14.4 Plt Count 355 Neut % (Auto) 72.7 Lymph % (Auto) 18.[address] [place] % (Auto) 4.3 Eos % (Auto) 3.5 Baso % (Auto) 0.8 Neut # (Auto) 8400 H Lymph # (Auto) 2200 [place] # (Auto) 500 Eos # (Auto) 400 Baso # (Auto) 100 PT INR APTT D-Dimer Sodium Potassium Chloride Carbon Dioxide BUN Creatinine Estimated GFR BUN/Creatinine Ratio Glucose Calcium Total Creatine Kinase CK-MB (CK-2) CK-MB (CK-2) Rel Index Troponin I NT-Pro-B Natriuret Pep TSH 8.80 H Free T4 1.46 SARS-CoV-2 (PCR) Negative 06/26/21 06/26/21 06/26/21 10:22 10:22 10:28 WBC RBC Hgb Hct MCV MCH MCHC RDW Plt Count Neut % (Auto) Lymph % (Auto) [place] % (Auto) Eos % (Auto) Baso % (Auto) Neut # (Auto) Lymph # (Auto) [place] # (Auto) Eos # (Auto) Baso # (Auto) PT INR APTT D-Dimer 299 H Sodium 135 L Potassium 3.6 Chloride 100 Carbon Dioxide 26 BUN 14 Creatinine 0.89 Estimated GFR > 60.0 BUN/Creatinine Ratio 15.7 Glucose 185 H Calcium 8.8 Total Creatine Kinase 82 CK-MB (CK-2) TNP CK-MB (CK-2) Rel Index TNP Troponin I 0.062 H NT-Pro-B Natriuret Pep 5080 H TSH Free T4 SARS-CoV-2 (PCR) 06/26/21 06/26/21 10:28 13:29 WBC RBC Hgb Hct MCV MCH MCHC RDW Plt Count Neut % (Auto) Lymph % (Auto) [place] % (Auto) Eos % (Auto) Baso % (Auto) Neut # (Auto) Lymph # (Auto) [place] # (Auto) Eos # (Auto) Baso # (Auto) PT 12.7 INR 1.1 APTT 33 D-Dimer Sodium Potassium Chloride Carbon Dioxide BUN Creatinine Estimated GFR BUN/Creatinine Ratio Glucose Calcium Total Creatine Kinase CK-MB (CK-2) CK-MB (CK-2) Rel Index Troponin I 0.064 H NT-Pro-B Natriuret Pep TSH Free T4 SARS-CoV-2 (PCR) Assessment & Plan Assessment and plan (1) Acute respiratory failure with hypoxemia: Status: Acute Assessment & Plan narrative: RESP: # Acute hypoxemia respiratory failure -- Secondary to pulmonary edema due to malignant hypertension -- Recommend aggressive diuresis to seek net negative fluid balance -- [place] IS and OOB as tolerated -- Titrate supplemental oxygen to maintain goal SpO2 > 88% # Asthma -- CT chest supportive of pulmonary edema -- Cont duoneb as needed CVS: # Hypertensive crisis -- Initially presented with SBP ~230 and currently SBP ~170s -- Goal SBP ~160-180 -- Cont labetalol and hydralazine as needed to maintain SBP goal as above -- Cont diuresis to seek preload reduction # CHF -- Secondary to high afterload leading to overt pulmonary edema -- Cont diuresis -- Pending TTE -- Goal SBP <180 ENDO: -- Goal BS < 180 Time Spent With Patient Critical Care time: I spent a total of [] minutes of critical care time on this patient's care today; this time is exclusive of procedural time.
[2021-06-26] MEDS: SODIUM CHLORIDE 0.9% FLUSH 10 ML IV (21:31)
[2021-06-27] VITALS (25 sets, daily range): BP systolic 114–205; BP diastolic 59–110; PULSE 70–87; RESP 16–32; TEMP 36.4–37.1; O2SAT 95–100
[2021-06-27] MEDS: HYDRALAZINE 20 MG/ML VIAL 10 MG IV ×2 (06:02→18:41)
[2021-06-27] MEDS: LABETALOL 100 MG TABLET 200 MG PO (06:02)
--- NOTE | 2021-06-27 06:38 | PC.NURSE ---
Shift Note-Patient has been drowsy but oriented x3. BP has been 170s-180s/80s-90s throughout night, which is goal per Dr Abdi, at 0400 started to increase to 190s/100, denies chest pain, does have headache, Dr Correa notified, orders received for PO labetalol and IV hydralazine prn.
[2021-06-27] MEDS: BUDESONIDE 0.5 MG/2 ML NEB INH ×2 (07:25→18:26)
[2021-06-27] MEDS: FUROSEMIDE 40 MG/4 ML VIAL IV (08:55)
[2021-06-27] MEDS: ENOXAPARIN 40 MG/0.4 ML SYRINGE SUBCUT ×2 (08:55→20:36)
[2021-06-27] MEDS: SODIUM CHLORIDE 0.9% FLUSH 10 ML IV ×2 (09:00→20:42)
--- NOTE | 2021-06-27 10:11 | DI.CT.S_ITS ---
PROCEDURE: CT HEAD/BRAIN WO CON INDICATIONS: headache TECHNIQUE: Noncontrast 4.5 mm thick angled axial sections acquired from the foramen magnum to the vertex, with coronal and sagittal reformats. For radiation dose reduction, the following was used: automated exposure control, adjustment of mA and/or kV according to patient size. COMPARISON: None. FINDINGS: Image quality: Excellent. CSF spaces: Basal cisterns are patent. No extra-axial fluid collections. Ventricles are normal in size and shape. Brain: There is a small lacunar infarct in the right caudate. No midline shift. No intracranial masses or hemorrhage. Mckeon-white matter interface is normal. Skull and face: Calvarium and visualized facial bones are intact, without suspicious lesions. Sinuses: There is opacification of the frontal, ethmoidal, and maxillary sinuses bilaterally. Mucosal thickening of the right sphenoid sinus. Mastoids are clear. IMPRESSION: 1. Lacunar infarct involving the right caudate, uncertain chronicity but most likely chronic. 2. Severe pansinusitis. Dictated by: Milli Rain M.D. on 06/27/2021 at 10:25 Approved by: Milli Rain M.D. on 06/27/2021 at 10:28
[2021-06-27] MEDS: LABETALOL 100 MG TABLET 300 MG PO ×2 (10:52→20:36)
[2021-06-27] MEDS: LOSARTAN 50 MG TABLET PO (10:53)
[2021-06-27] MEDS: ACETAMINOPHEN 325 MG TABLET 650 MG PO (10:53)
[2021-06-27 11:12] LABS: Add Manual Diff / Slide Review NO; Basophils Absolute Auto 100 /uL (0-100); Basophils Percent Auto 0.3 % (0-2); Eosinophils Absolute Auto 0 /uL (0-450); Hematocrit 42.4 % (36-46); Hemoglobin 13.9 g/dL (12.0-16.0); Lymphocytes Absolute Auto 1100 /uL (1100-4500); Lymphocytes Percent Auto 6.7 % (25-40); Mean Corpuscular HGB Conc 32.7 % (30-36); Mean Corpuscular Volume 82.5 fL (80-100); Monocytes Absolute Auto 800 /uL (0-900); Neutrophils Absolute Auto 14200 /uL (1500-7000); Platelet Count 377 X10^3/uL (150-400); Red Blood Cell Count 5.14 X10^6/uL (4.0-5.2); Red Cell Distribution Width 14.6 % (11.6-14.8); White Blood Cell Count 16.2 X10^3/uL (4.5-11.0)
[2021-06-27 11:30] LABS: Alanine Aminotransferase 56 IU/L (<35); Albumin 4.4 g/dL (3.5-5.0); Albumin Globulin Ratio 1.5 (1.0-2.8); Alkaline Phosphatase 72 U/L (38-126); Aspartate Aminotransferase 43 IU/L (14-36); BUN Creatinine Ratio 19.1 (6-22); Bilirubin Total 1.1 mg/dL (0.2-1.3); Blood Urea Nitrogen 18 mg/dL (7-17); Carbon Dioxide 30 mmol/L (22-32); Chloride 98 mmol/L (98-107); Creatine Kinase 66 U/L (30-135); Estimated Glomerular Filt Rate > 60.0 mL/min (>60); Globulin 2.9 g/dL (1.7-4.1); Glucose 219 mg/dL (70-100); HEMOLYSIS < 15 (0-50); Potassium 3.5 mmol/L (3.4-5.1); Sodium 138 mmol/L (137-145); Total Protein 7.3 g/dL (6.3-8.2)
[2021-06-27 11:41] LABS: Troponin I 0.039 ng/mL (0.01-0.034)
[2021-06-27 11:49] LABS: Magnesium 1.9 mg/dL (1.6-2.3); Phosphorous 3.9 mg/dL (2.5-4.5)
--- NOTE | 2021-06-27 12:34 | P.TELICUPN_ITS ---
Subjective Subjective :: This patient was seen via real time interactive two-way audiovisual telecommunication. Current Medications Current Medications Medications: Home Medications albuterol sulfate 90 mcg/actuation aerosol inhaler (Ventolin HFA) 2 puff INH Q4HP PRN #1 inh 07/05/16 [Rx Confirmed 06/26/21] Visit Medications (administered) Generic Name Dose Route Start Last Admin Trade Name Freq PRN Reason Stop Dose Admin Acetaminophen 650 mg 06/27/21 09:59 06/27/21 10:53 Acetaminophen 325 Mg Tablet PO 650 mg Q6HR PRN Administration headache/pain Budesonide 0.5 mg 06/26/21 18:00 06/27/21 07:25 Budesonide 0.5 Mg/2 Ml Neb INH 0.5 mg RTBID HANNA Administration Enoxaparin Sodium 40 mg 06/27/21 09:00 06/27/21 08:55 Enoxaparin 40 Mg/0.4 Ml Syringe SUBCUT 40 mg BID HANNA Administration Famotidine 20 mg 06/26/21 14:45 06/26/21 14:36 Famotidine 20 Mg/2 Ml Vial IV 20 mg NOW HANNA Administration Furosemide 40 mg 06/27/21 09:00 06/27/21 08:55 Furosemide 40 Mg/4 Ml Vial IV 40 mg DAILY HANNA Administration Hydralazine HCl 10 mg 06/27/21 05:23 06/27/21 06:02 Hydralazine 20 Mg/Ml Vial IV 10 mg Q6HR PRN Administration Hypertension Labetalol HCl 300 mg 06/27/21 10:15 06/27/21 10:52 Labetalol 100 Mg Tablet PO 300 mg BID HANNA Administration Losartan Potassium 50 mg 06/27/21 10:45 06/27/21 10:53 Losartan 50 Mg Tablet PO 50 mg DAILY HANNA Administration Sodium Chloride 10 ml 06/26/21 21:00 06/27/21 09:00 Sodium Chloride 0.9% Flush IV 10 ml BID HANNA Administration Objective Labs Result Diagrams: 06/27/21 10:50 06/27/21 10:50 Labs: Laboratory Results - last 24 hr 06/26/21 06/26/21 06/26/21 10:15 10:28 13:29 WBC RBC Hgb Hct MCV MCH MCHC RDW Plt Count Neut % (Auto) Lymph % (Auto) [place] % (Auto) Eos % (Auto) Baso % (Auto) Neut # (Auto) Lymph # (Auto) [place] # (Auto) Eos # (Auto) Baso # (Auto) PT 12.7 INR 1.1 APTT 33 Sodium Potassium Chloride Carbon Dioxide BUN Creatinine Estimated GFR BUN/Creatinine Ratio Glucose Calcium Phosphorus Magnesium Total Bilirubin AST ALT Alkaline Phosphatase Total Creatine Kinase CK-MB (CK-2) CK-MB (CK-2) Rel Index Troponin I 0.064 H Total Protein Albumin Globulin Albumin/Globulin Ratio TSH 8.80 H Free T4 1.46 Nasal Screen MRSA (PCR) 06/26/21 06/27/21 06/27/21 20:41 10:50 10:50 WBC 16.2 H RBC 5.14 Hgb 13.9 Hct 42.4 MCV 82.5 MCH 27.0 MCHC 32.7 RDW 14.6 Plt Count 377 Neut % (Auto) 88.0 H Lymph % (Auto) 6.7 L [place] % (Auto) 5.0 Eos % (Auto) 0.0 L Baso % (Auto) 0.3 Neut # (Auto) 53413 H Lymph # (Auto) 1100 [place] # (Auto) 800 Eos # (Auto) 0 Baso # (Auto) 100 PT INR APTT Sodium 137 Potassium 4.0 Chloride 97 L Carbon Dioxide 29 BUN 19 H Creatinine 0.89 Estimated GFR > 60.0 BUN/Creatinine Ratio 21.3 Glucose 216 H Calcium 10.3 H Phosphorus 3.9 Magnesium 1.9 Total Bilirubin 1.1 AST 42 H ALT 51 H Alkaline Phosphatase 75 Total Creatine Kinase CK-MB (CK-2) CK-MB (CK-2) Rel Index Troponin I Total Protein 6.9 Albumin 4.4 Globulin 2.5 Albumin/Globulin Ratio 1.8 TSH Free T4 Nasal Screen MRSA (PCR) Negative for mrsa 06/27/21 10:50 WBC RBC Hgb Hct MCV MCH MCHC RDW Plt Count Neut % (Auto) Lymph % (Auto) [place] % (Auto) Eos % (Auto) Baso % (Auto) Neut # (Auto) Lymph # (Auto) [place] # (Auto) Eos # (Auto) Baso # (Auto) PT INR APTT Sodium 138 Potassium 3.5 Chloride 98 Carbon Dioxide 30 BUN 18 H Creatinine 0.94 Estimated GFR > 60.0 BUN/Creatinine Ratio 19.1 Glucose 219 H Calcium 10.0 Phosphorus Magnesium Total Bilirubin 1.1 AST 43 H ALT 56 H Alkaline Phosphatase 72 Total Creatine Kinase 66 CK-MB (CK-2) TNP CK-MB (CK-2) Rel Index TNP Troponin I 0.039 H Total Protein 7.3 Albumin 4.4 Globulin 2.9 Albumin/Globulin Ratio 1.5 TSH Free T4 Nasal Screen MRSA (PCR) Exam Vital Signs (past 8 hours): - 06/27/21 06:02 06/27/21 07:29 06/27/21 08:00 Temperature 97.9 F Pulse Rate 86 84 80 Respiratory Rate 16 27 H Blood Pressure 205/110 H 158/78 H Pulse Oximetry 98 98 06/27/21 09:00 06/27/21 09:56 06/27/21 10:00 Temperature Pulse Rate 84 86 Respiratory Rate 29 H 27 H Blood Pressure 192/99 H 156/80 H Pulse Oximetry 98 96 98 06/27/21 11:00 06/27/21 12:00 Temperature 98 F Pulse Rate 84 86 Respiratory Rate 26 H 27 H Blood Pressure 171/83 H 167/83 H Pulse Oximetry 97 95 Oxygen Delivery Method Room Air Oxygen Flow Rate 0 Quality TeleICU VTE Deep Vein Thrombosis/Pulmonary Embolism Present on Admission: No Assessment & Plan Assessment & Plan narrative: jesus wade RN chart/labs imaging reviewed 41 year old female admitted withacute reps failure with hyptertensive emergency currently afebrile, bp ranging from 160s to 190s pt complaining of headache with no focal deficit suggest -CT head done, -ve, see full report -optimize bp control -increase labetolol to 300mg bid, can do TID if needed -dc lisinopril, pt had cough in the pas, start losartan 50mg daily -start hydralazine 25mg tid -continue diuresis -goal sbp less than 160s -check echo -wean fi02 -keep glucose 140-180s -replace lytes prn -gi/dvtppx -call eICU if condition changes Time Spent With Patient Critical Care time: I spent a total of [] minutes of critical care time on this patient's care today; this time is exclusive of procedural time.
[2021-06-27] MEDS: POTASSIUM CHLORIDE 20 MEQ TAB 40 MEQ PO (14:30)
[2021-06-27] MEDS: HYDRALAZINE 25 MG TABLET PO ×2 (14:30→21:53)
--- NOTE | 2021-06-27 16:01 | CM.IDA ---
Discharge Planning/Care Management CM Discharge Assessment Start: 06/27/21 15:43 Freq: Status: Active Protocol: Document 06/27/21 15:43 GEOVANY (Rec: 06/27/21 16:01 GEOVANY [id number]) Discharge Planning Assessment Assigned Professor Of Business Administration JERI Tom DPOA/Assigned Designee Name mother Sal Contact Information [phone], home , work Advance Directives? No History Provided By Patient,Medical Record Prior Living Arrangements House Household Members none Type of transporation used prior to Drives own vehicle admit Independent with ADL's Yes Is patient alert and oriented? Yes Comment H+P: Assessment: 1. Hypertensive emergency, likely due to extensive use of Sudafed at home 2. Coronary supply/demand mismatch, likely due to HTN emergency 3. Hx of asthma 4. Obesity, class 3 Barriers to Discharge No Comment Patient is indp at baseline, comes in w/ trouble breathing and now being treated for acute resp failure w/ Hypertensive emergency, per H+ P- likely due to extensive use of Sudafed at home for a cold . Patient had [facility], appears to have let this coverage lapse (?) Bianka Lopez, admitting, now working to reactivate this GAUDENC[employer] coverage. Admitting group writes that this will be checked on again WednesdayJun 30 as GAUDENCIO was not in place this Wednesday afternoon. Patient reports lack of insurance coverage as a barrier to seeking medical care and/or taking prescribed meds Discharge Plan Home Transportation Arrangement TBD Referrals Initiated None needed Additional Comment No referrals needed at this time. Patient does not currently have active GAUDENCIO... Outpatient resources upon DC will be limited. Comment Patient snoozing on/off today. DC home expected upon medical clearance. CM team will remain available in case DC needs or concerns arise.
--- NOTE | 2021-06-27 17:42 | DI.ECHO.S_ITS ---
[facility] +---------+ : : [address] : : : : [place], : : : : [place] [address] : : : : Phone: [phone] + [facility]-9130 Echocardiogram Report + + :Name: CASSANDRA MORRIS V Study Date: 06/28/2021 Height: 63 in : :[employer] ReadingLocation: Weight: 245 lb : : Gender: Female BSA: 2.1 m2 : :: 1980 Age: 41 yrs BP: 176/105 mmHg: :Reason For Study: SUSPECTED PFO BASED ON INITIAL : :ECHOCARDIOGRAM : :Ordering Physician: SATHYA, : :LITTLE BRYANT Performed By: Jo Ann Costa : :Referring: LITTLE MCDONNELL MD : + + Interpretation Summary The left ventricle is normal in size. Left ventricular systolic function is mildly reduced. The ejection fraction is estimated to be 45-50%. There has been no significant change since the previous exam. Injection of contrast documented an interatrial shunt. Procedure: A two-dimensional transthoracic echocardiogram with color flow and Doppler was performed in limited views only to assess Bubble Study. The study quality was technically adequate. Comparison is made with the echocardiogram of 06/27/2021. Left Ventricle: The left ventricle is normal in size. Left ventricular wall thickness is moderately increased. Left ventricular systolic function is mildly reduced. The ejection fraction is estimated to be 45-50%. There has been no significant change since the previous exam. Atria: Injection of contrast documented an interatrial shunt. Pericardium/ Pleura There is no pleural effusion. MMode/2D Measurements & Calculations LVIDd: 5.4 cm LVIDs: 4.2 cm IVSd: 1.5 cm LVPWd: 1.6 cm LV sofia. diameter/BSA (cm/m^2): 2.5 LV sys. diameter/BSA (cm/m^2): 2.0 FS: 22.0 % Reading Physician:03:02 PM
--- NOTE | 2021-06-27 17:44 | PM.PN.1 ---
Subjective Subjective Interval history: Patient reports feeling better today. We discussed that she might have JOE. She's been attempting to arrange a sleep study outpatient. She reports good PO intake. Exam Vital Signs (past 8 hours): - 06/27/21 09:56 06/27/21 10:00 06/27/21 11:00 Temperature Pulse Rate 86 84 Respiratory Rate 27 H 26 H Blood Pressure 156/80 H 171/83 H Pulse Oximetry 96 98 97 06/27/21 12:00 06/27/21 13:00 06/27/21 14:23 Temperature 98 F Pulse Rate 86 75 74 Respiratory Rate 27 H 32 H 30 H Blood Pressure 167/83 H 141/68 H 135/73 Pulse Oximetry 95 96 95 06/27/21 15:59 Temperature 98.7 F Pulse Rate 77 Respiratory Rate 16 Blood Pressure 140/75 Pulse Oximetry 96 Oxygen Delivery Method Room Air Oxygen Flow Rate 0 Narrative Exam Narrative: Const Other: Patient laying in bed comfortably upon my entering the room, in no apparent acute distress. Eyes Other: No scleral icterus appreciated. Neck Other: No carotid bruits appreciated. No JVD. Resp Other: Scattered wheezing appreciated diffusely, faint. Cardio Other: Tachycardic rate, regular rhythm. S1 and S2 heart sounds normal. No murmurs appreciated. No peripheral edema noted. GI Other: Soft, non-distended, non-tender. Bowel sounds present. Extrem Other: Palpable and bilaterally equal radial and dorsalis pedis pulses. Objective Labs Result Diagrams: 06/27/21 10:50 06/27/21 10:50 Labs: Laboratory Results - last 24 hr 06/26/21 06/26/21 06/27/21 10:15 20:41 10:50 WBC 16.2 H RBC 5.14 Hgb 13.9 Hct 42.4 MCV 82.5 MCH 27.0 MCHC 32.7 RDW 14.6 Plt Count 377 Neut % (Auto) 88.0 H Lymph % (Auto) 6.7 L [place] % (Auto) 5.0 Eos % (Auto) 0.0 L Baso % (Auto) 0.3 Neut # (Auto) 59533 H Lymph # (Auto) 1100 [place] # (Auto) 800 Eos # (Auto) 0 Baso # (Auto) 100 Sodium Potassium Chloride Carbon Dioxide BUN Creatinine Estimated GFR BUN/Creatinine Ratio Glucose Calcium Phosphorus Magnesium Total Bilirubin AST ALT Alkaline Phosphatase Total Creatine Kinase CK-MB (CK-2) CK-MB (CK-2) Rel Index Troponin I Total Protein Albumin Globulin Albumin/Globulin Ratio TSH 8.80 H Free T4 1.46 Nasal Screen MRSA (PCR) Negative for mrsa 06/27/21 06/27/21 10:50 10:50 WBC RBC Hgb Hct MCV MCH MCHC RDW Plt Count Neut % (Auto) Lymph % (Auto) [place] % (Auto) Eos % (Auto) Baso % (Auto) Neut # (Auto) Lymph # (Auto) [place] # (Auto) Eos # (Auto) Baso # (Auto) Sodium 137 138 Potassium 4.0 3.5 Chloride 97 L 98 Carbon Dioxide 29 30 BUN 19 H 18 H Creatinine 0.89 0.94 Estimated GFR > 60.0 > 60.0 BUN/Creatinine Ratio 21.3 19.1 Glucose 216 H 219 H Calcium 10.3 H 10.0 Phosphorus 3.9 Magnesium 1.9 Total Bilirubin 1.1 1.1 AST 42 H 43 H ALT 51 H 56 H Alkaline Phosphatase 75 72 Total Creatine Kinase 66 CK-MB (CK-2) TNP CK-MB (CK-2) Rel Index TNP Troponin I 0.039 H Total Protein 6.9 7.3 Albumin 4.4 4.4 Globulin 2.5 2.9 Albumin/Globulin Ratio 1.8 1.5 TSH Free T4 Nasal Screen MRSA (PCR) [facility] Medical History Asthma Hypertension Social History household members: none Smoking Status: Former smoker alcohol intake: current Assessment & Plan Assessment & Plan narrative: Assessment: 1. Hypertensive emergency, likely due to extensive use of Sudafed at home 2. Coronary supply/demand mismatch, likely due to HTN emergency 3. Possible PFO, based on initial echocardiogram 4. Hx of asthma 5. Obesity, class 3 Plan: 1. Patient could not tolerate IV nitroglycerin. She developed eultxtwh-zpkbelim-prxj symptoms to IV nicardipine. BP improved with PO meds. Currently, on losartan 50 mg once daily (patient developed a cough with lisinopril) and labetalol 300 mg bid. Uptitrate as needed. 2. The patient's high BP likely contributed to a slight troponin leak. She denies typical CP sxs. EKG unremarkable. Echocardiogram showing no wall motion abnormalities. 3. Will order echocardiogram with contrast (bubble study) and follow-up. 4. The patient takes albuterol at home, which could have contributed to problem 1, too. Will start inhaled budesonide bid scheduled. Will hold off on Duo-Neb for now given albuterol beta agnoist activity. 5. Likely contributing to problems above. Counseling provided. VTE prophylaxis: Lovenox 40 mg daily Time Spent With Patient Critical Care time: I spent a total of [] minutes of critical care time on this patient's care today; this time is exclusive of procedural time. Quality VTE Deep Vein Thrombosis/Pulmonary Embolism Present on Admission: No
[2021-06-28] VITALS (23 sets, daily range): BP systolic 120–176; BP diastolic 60–107; PULSE 65–88; RESP 16–28; TEMP 36.2–36.8; O2SAT 94–99
[2021-06-28] MEDS: ACETAMINOPHEN 325 MG TABLET 650 MG PO (04:07)
--- NOTE | 2021-06-28 04:20 | PC.NURSE ---
Addendum entered by Shira Kumar R.N. 06/28/21 06:52: Patient's BP up to 169/107 HR 76. Routine dose of Hydralazine 25 mg given. BP checked 30 minutes later and BP 168/106 HR 82. Additional anti- hypertensives scheduled this am. Will discuss with on-coming shift. Patient reports that she has a lot of sinus congestion this morning and has pressure and discomfort. Patient relates this is a normal occurrance for her, I have had sinus trouble for years. Original Note: Patient has been OOB to the bathroom and steady on feet. Patient C/O headache at 4/10. Medicated with Acetaminophen. Patient sleeping for long periods. Blood pressure ranging from 146/89 to 114/59. Heart Rate 70s.
[2021-06-28 05:17] LABS: BUN Creatinine Ratio 24.5 (6-22); Blood Urea Nitrogen 24 mg/dL (7-17); Calcium 9.8 mg/dL (8.4-10.2); Carbon Dioxide 32 mmol/L (22-32); Chloride 101 mmol/L (98-107); Estimated Glomerular Filt Rate > 60.0 mL/min (>60); Glucose 130 mg/dL (70-100); HEMOLYSIS < 15 (0-50); Potassium 4.2 mmol/L (3.4-5.1); Sodium 137 mmol/L (137-145)
[2021-06-28] MEDS: HYDRALAZINE 25 MG TABLET PO ×3 (06:15→21:59)
--- NOTE | 2021-06-28 08:04 | P.PN_ITS ---
Subjective Subjective Date Patient Seen: 06/28/21 Interval history: She is seen today to follow-up her hypertensive emergency. An echo bubble study is pending. Sudafed seems to have been 1 of the triggers as she was taking that it in excessive amounts for her sinus symptoms. Her white blood count is 16.2 with a hemoglobin of 13.9. Her BMP is normal with a glucose of 130. Her echo e jection fraction 45-50%. Her CT scan showed a chronic right lacunar infarct and severe pansinusitis. Exam Vital Signs (past 8 hours): - 06/28/21 00:45 06/28/21 04:00 06/28/21 04:25 Temperature 97.1 F L Pulse Rate 77 75 Respiratory Rate 18 16 Blood Pressure 123/66 136/75 Pulse Oximetry 95 95 06/28/21 06:00 06/28/21 06:15 06/28/21 06:48 Temperature 97.4 F L Pulse Rate 75 75 82 Respiratory Rate 18 Blood Pressure 169/107 H 169/107 H 168/106 H Pulse Oximetry 96 Oxygen Delivery Method Room Air Oxygen Flow Rate 0 Narrative Exam Narrative: She is alert and oriented x3 and in no apparent distress. Her blood pressure has been coming down steadily today. Heart is regular rate and rhythm murmur Lungs are clear to auscultation bilaterally Extremities have no ankle edema Objective Labs Result Diagrams: 06/27/21 10:50 06/28/21 04:45 Labs: Laboratory Results - last 24 hr 06/27/21 06/27/21 06/27/21 10:50 10:50 10:50 WBC 16.2 H RBC 5.14 Hgb 13.9 Hct 42.4 MCV 82.5 MCH 27.0 MCHC 32.7 RDW 14.6 Plt Count 377 Neut % (Auto) 88.0 H Lymph % (Auto) 6.7 L [place] % (Auto) 5.0 Eos % (Auto) 0.0 L Baso % (Auto) 0.3 Neut # (Auto) 87995 H Lymph # (Auto) 1100 [place] # (Auto) 800 Eos # (Auto) 0 Baso # (Auto) 100 Sodium Cancelled 138 Potassium Cancelled 3.5 Chloride Cancelled 98 Carbon Dioxide Cancelled 30 BUN Cancelled 18 H Creatinine Cancelled 0.94 Estimated GFR Cancelled > 60.0 BUN/Creatinine Ratio Cancelled 19.1 Glucose Cancelled 219 H Calcium Cancelled 10.0 Phosphorus 3.9 Magnesium 1.9 Total Bilirubin Cancelled 1.1 AST Cancelled 43 H ALT Cancelled 56 H Alkaline Phosphatase Cancelled 72 Total Creatine Kinase 66 CK-MB (CK-2) TNP CK-MB (CK-2) Rel Index TNP Troponin I 0.039 H Total Protein Cancelled 7.3 Albumin Cancelled 4.4 Globulin Cancelled 2.9 Albumin/Globulin Ratio Cancelled 1.5 06/28/21 04:45 WBC RBC Hgb Hct MCV MCH MCHC RDW Plt Count Neut % (Auto) Lymph % (Auto) [place] % (Auto) Eos % (Auto) Baso % (Auto) Neut # (Auto) Lymph # (Auto) [place] # (Auto) Eos # (Auto) Baso # (Auto) Sodium 137 Potassium 4.2 Chloride 101 Carbon Dioxide 32 BUN 24 H Creatinine 0.98 Estimated GFR > 60.0 BUN/Creatinine Ratio 24.5 H Glucose 130 H Calcium 9.8 Phosphorus Magnesium Total Bilirubin AST ALT Alkaline Phosphatase Total Creatine Kinase CK-MB (CK-2) CK-MB (CK-2) Rel Index Troponin I Total Protein Albumin Globulin Albumin/Globulin Ratio [facility] Medical History Asthma Hypertension Social History household members: none Smoking Status: Former smoker alcohol intake: current Assessment & Plan Assessment & Plan narrative: Assessment: 1. Hypertensive emergency, likely due to extensive use of Sudafed at home 2. Coronary supply/demand mismatch, likely due to HTN emergency 3. Possible PFO, based on initial echocardiogram, bubble study pending 4. Hx of asthma 5. Obesity, class 3 6. Pansinusitis 7. Chronic Lacunar Infarct Plan: 1. Patient could not tolerate IV nitroglycerin. She developed pzerawen-envhitih-oeuv symptoms to IV nicardipine. BP improved with PO meds. Currently, on losartan 50 mg once daily (patient developed a cough with lisinopril) and labetalol 300 mg bid. Uptitrate as needed. 2. The patient's high BP likely contributed to a slight troponin leak. She denies typical CP sxs. EKG unremarkable. Echocardiogram showing no wall motion abnormalities. 3. Echocardiogram with contrast (bubble study) pending, ordered on 06/27 4. The patient takes albuterol at home, which could have contributed to problem 1, too. Continue inhaled budesonide bid scheduled. Will hold off on Duo-Neb for now given albuterol beta agnoist activity. 5. Likely contributing to problems above. Counseling provided. 6. Rec: ENT evaluation as outpatient. WBC is elevated. 7. Control BP VTE prophylaxis: Lovenox 40 mg daily Time Spent With Patient Critical Care time: I spent a total of [] minutes of critical care time on this patient's care today; this time is exclusive of procedural time. Quality VTE Deep Vein Thrombosis/Pulmonary Embolism Present on Admission: No
[2021-06-28] MEDS: BUDESONIDE 0.5 MG/2 ML NEB INH ×2 (08:25→20:30)
[2021-06-28] MEDS: LOSARTAN 50 MG TABLET PO (08:30)
[2021-06-28] MEDS: FUROSEMIDE 40 MG/4 ML VIAL IV (08:30)
[2021-06-28] MEDS: ENOXAPARIN 40 MG/0.4 ML SYRINGE SUBCUT ×2 (08:31→22:00)
[2021-06-28] MEDS: LABETALOL 100 MG TABLET 300 MG PO ×2 (08:34→21:59)
[2021-06-28] MEDS: SODIUM CHLORIDE 0.9% FLUSH 10 ML IV ×2 (08:35→22:00)
--- NOTE | 2021-06-28 15:52 | CM.DPNOTE ---
DCP Note Spoke w/patient this morning; patient lives w/her mom, whom she states is a good support. No children and no other local family according to patient Patient explains her GAUDENCIO had lapsed when she no longer met the income requirements because she picked up addtl hours form her employer- [employer] Patient expects to return home w/mom to transport upon DC and wants Dr Peguero to know that she can pay out of pocket for any new Rx upon DC; that's if she is DC before her GAUDENCIO coverage can be confirmed as reactivated on Wednesday Plan: DC expected home w/in 24-48 hrs, [facility] likely active Wednesday 2.7.22 JW
--- NOTE | 2021-06-28 17:10 | PC.NURSE ---
Addendum entered by Pema Boswell R.N. 06/28/21 18:01: Pt resting comfortably at present, belongings moved to Room 224 for staffing. Original Note: Am shift Pt has BP running 130/80 nolberto, and c/o sinus ache and this afternoon some blurry vision. Denies double vision, just reporting, the tv is a bit blurry able to track fingers through all connors of vision. INcreased RR with showering, ambulating to BR. WOB increased as well. Pt is otherwise comfortable and denies needs. Tolerating meals well, eager to d/c home if able. Access to medication has been an issue as she no longer has a PCP. hr manager into see patient for appropriate d/c plan.
[2021-06-28] MEDS: ALBUTEROL 2.5 MG/3 ML NEB (ADULT) INH ×2 (20:50→23:50)
[2021-06-29] VITALS (13 sets, daily range): BP systolic 112–155; BP diastolic 67–96; PULSE 65–80; RESP 17–20; TEMP 36.4–37.1; O2SAT 95–97
[2021-06-29] MEDS: HYDRALAZINE 25 MG TABLET PO (05:53)
[2021-06-29] MEDS: BUDESONIDE 0.5 MG/2 ML NEB INH (07:43)
[2021-06-29] MEDS: ALBUTEROL 2.5 MG/3 ML NEB (ADULT) INH (07:43)
[2021-06-29] MEDS: LABETALOL 100 MG TABLET 300 MG PO (08:35)
[2021-06-29] MEDS: ENOXAPARIN 40 MG/0.4 ML SYRINGE SUBCUT (08:35)
[2021-06-29] MEDS: LOSARTAN 50 MG TABLET PO (08:36)
[2021-06-29] MEDS: FUROSEMIDE 20 MG TABLET PO (08:43)
[2021-06-29 09:14] LABS: Add Manual Diff / Slide Review NO; Basophils Absolute Auto 100 /uL (0-100); Basophils Percent Auto 0.7 % (0-2); Eosinophils Absolute Auto 400 /uL (0-450); Hematocrit 43.9 % (36-46); Hemoglobin 14.3 g/dL (12.0-16.0); Lymphocytes Absolute Auto 2100 /uL (1100-4500); Lymphocytes Percent Auto 26.1 % (25-40); Mean Corpuscular HGB Conc 32.7 % (30-36); Mean Corpuscular Hemoglobin 27.2 PG (26-34); Mean Corpuscular Volume 83.3 fL (80-100); Monocytes Absolute Auto 500 /uL (0-900); Monocytes Percent Auto 6.3 % (3-14); Neutrophils Absolute Auto 4900 /uL (1500-7000); Neutrophils Percent Auto 61.9 % (50-75); Platelet Count 360 X10^3/uL (150-400); Red Blood Cell Count 5.27 X10^6/uL (4.0-5.2); Red Cell Distribution Width 14.5 % (11.6-14.8); White Blood Cell Count 7.9 X10^3/uL (4.5-11.0)
[2021-06-29 09:33] LABS: BUN Creatinine Ratio 20.6 (6-22); Blood Urea Nitrogen 20 mg/dL (7-17); Calcium 10.2 mg/dL (8.4-10.2); Carbon Dioxide 29 mmol/L (22-32); Chloride 99 mmol/L (98-107); Estimated Glomerular Filt Rate > 60.0 mL/min (>60); Glucose 179 mg/dL (70-100); HEMOLYSIS < 15 (0-50); Potassium 3.9 mmol/L (3.4-5.1); Sodium 136 mmol/L (137-145)
--- NOTE | 2021-06-29 10:21 | PC.NURSE ---
Patient A/O x 3, denies SOB or SOBOE post Tx this AM. Lungs tight, CTA, on RA. No edema noted, tele removed for discharge. R AC IV removed as well, patient tolerated. Patient given discharge instructions regarding medications, diet, increasing physical activity, s/s of worsening condition, and f/u appointment with PCP (encouraged patient to establish PCP to continue care). Patient verbalized understanding. Patient denies belongings in safe or pharmacy.
--- NOTE | 2021-06-29 18:35 | P.DS_ITS ---
History of Present Illness History of Present Illness Chief complaint: Trouble breathing Narrative: 41yo female with a hx of asthma and hypertension that presents with SOB. She states this has been ongoing for about a month or so. However, it's progressed to the point where she has a hard time laying down flat without becoming SOB. This particular feature started 1-2 days ago. This is what prompted her to present to the ER. She called the ambulance herself from home. She denies that this has ever happened before. She denies associated CP, pleuritic pain, hemoptysis, peripheral edema, PND, n/v, abd pain, MORILLO's, diaphoresis, fever/chills, recent URI sxs. She does endorse anxiety. However, she believes it's the SOB that makes her anxious. She was on 2 anti-HTN's in the past, she cannot recall their names, along with maintenance inhaler for asthma. However, she has not had these medicine in over 2 years due to lack of health insurance. Of note, the patient admits to taking copious amounts of Sudafed at home for rhinorrhea. She was aware that it increases BP, but she didn't realize to what degree. She has a PSH of nasal polyp removal, along with deviated septum correction. Discharge Providers Provider Date of admission: 06/26/21 14:28 Discharge Date: 06/29/21 Consults: 06/28/21 20:45 Consult to Respiratory Therapy Evaluate & Treat Comment: SOB Physician Instructions: Evaluate and treat Discharge provider: Luis Duque MD Summary Hospital Course Discharge Diagnosis: 1. Hypertensive emergency 2. Chronic hypertension 3. Type 2 [place] demand related ischemia 4. Acute hypoxic respiratory failure 5. Patent foramen ovale 6. Severe obesity BMI 43 7. Chronic right lacunar infarction 8. Mild LV systolic dysfunction on echo 9. Possible obstructive sleep apnea 10. Chronic pansinusitis Patient admitted due to symptoms hypertensive emergency. She could not tolerate IV nitroglycerin. She developed [id number] symptoms to IV nicardip ine. She was effectively managed with transitioning to oral medications. She was also diuresed with IV furosemide for acute pulmonary edema. At this time blood pressures are mildly elevated on combination of losartan 50 mg q.d., labetalol 300 mg b.i.d., hydralazine 25 mg t.i.d.. Losartan was increased to 100 mg q.d. at time of discharge. She is also going to continue on labetalol and hydralazine as well as 20 mg daily furosemide. Echo showed mild LV dysfunction with EF 55+/-5%. She was noted to have likely PFO with follow-up bubble study showing an interatrial shunt. This should not change her management. Patient will need to establish with primary care provider. She would also benefit from sleep apnea evaluation. She was taking large amounts of Sudafed which likely contributed to hypertensive presentation but has known chronic untreated hypertension. Her head CT did show pansinusitis and she is being discharged on course of Augmentin. She also requested singular which has helped her nasal symptoms and asthma in the past. She will try to see outpatient ENT. WBC was elevated which resolved on its own. Status at Discharge Cognitive/behavioral status at discharge: oriented Functional status at discharge: independent ambulation Overall status at discharge: patient is back to baseline Time Spent with Patient Time spent: Greater than 30 minutes Exam Vital Signs (past 8 hours): Oxygen Delivery Method Room Air Oxygen Flow Rate 0 Narrative Exam Narrative: General: Alert and pleasant no acute distress Lungs: Clear to auscultation Heart: Regular rhythm Extremities: No edema Objective Labs Result Diagrams: 06/29/21 09:03 06/29/21 09:03 Labs: Laboratory Results - last 24 hr 06/29/21 06/29/21 09:03 09:03 WBC 7.9 D RBC 5.27 H Hgb 14.3 Hct 43.9 MCV 83.3 MCH 27.2 MCHC 32.7 RDW 14.5 Plt Count 360 Neut % (Auto) 61.9 D Lymph % (Auto) 26.1 [place] % (Auto) 6.3 Eos % (Auto) 5.0 H Baso % (Auto) 0.7 Neut # (Auto) 4900 Lymph # (Auto) 2100 [place] # (Auto) 500 Eos # (Auto) 400 Baso # (Auto) 100 Sodium 136 L Potassium 3.9 Chloride 99 Carbon Dioxide 29 BUN 20 H Creatinine 0.97 Estimated GFR > 60.0 BUN/Creatinine Ratio 20.6 Glucose 179 H Calcium 10.2 PFSH Medical History Asthma Hypertension Social History household members: none Smoking Status: Former smoker alcohol intake: current Discharge Plan Discharge Plan Patient Disposition: Home Provider Discharge Comment: You were treated for hypertensive emergency. Take medications as prescribed. Monitor blood pressure at home if able. Try to gradually lose weight and increase activity as tolerated. Get evaluated for sleep apnea. I've also prescribed antibiotic for chronic sinusitis and allergies. Establish with PCP. Do not run out of blood pressure lowering medications. Discharge orders & Medications Prescriptions: New hydralazine 25 mg Tablet 25 mg PO Q8HR Qty: 90 0RF furosemide 20 mg Tablet 20 mg PO DAILY Qty: 30 0RF losartan 100 mg tablet 100 mg PO DAILY Qty: 30 0RF labetalol 300 mg tablet 300 mg PO BID Qty: 60 0RF amoxicillin-pot clavulanate [Augmentin] 875-125 mg tablet 1 tab PO Q12H Qty: 28 0RF montelukast [Singulair] 10 mg tablet 10 mg PO DAILY Qty: 30 0RF Continued albuterol sulfate [Ventolin HFA] 90 MCG/PUFF HFA aerosol inhaler 2 puff INH Q4HP PRNQty: 1 0RF Diet/Activity/Treatments Diet: Regular Quality VTE Deep Vein Thrombosis/Pulmonary Embolism Present on Admission: No
== END 2021-06-29 10:55 | disposition home or self-care (01) | DRG 199 ==
LOC: ED 13:54 → AC 14:29 → ICU 06-27 06:50 → AC 06-28 18:05
PROVIDERS: Internal Medicine; Internal Medicine Critical Care Medicine; Admitting Provider Student in an Organized Health Care Education/Training Program; Emergency Provider Emergency Medicine; Referring Provider Emergency Medicine; Visit Provider Student in an Organized Health Care Education/Training Program
DX: I16.1 Hypertensive emergency (principal); T44.995A Adverse effect of other drug primarily affecting the autonomic nervous system, initial encounter; J45.909 Unspecified asthma, uncomplicated; I21.A1 Myocardial infarction type 2; J96.01 Acute respiratory failure with hypoxia; J81.0 Acute pulmonary edema; E66.01 Morbid (severe) obesity due to excess calories; J32.4 Chronic pansinusitis; R79.89 Other specified abnormal findings of blood chemistry; Z68.41 Body mass index [BMI] 40.0-44.9, adult; Z87.891 Personal history of nicotine dependence
CPT/HCPCS: 36415; 70450; 71045; 71275; 80048; 80053; 82550; 83735; 83880; 84100; 84439; 84443; 84484; 85025; 85379; 85610; 85730; 87635; 87797; 93005; 93010; 93306; 93307; 94640; 94760; 96361; 96365; 96375; 99285; 99291; C9803; J0360; J1650; J1940; J2060; J2930; J7613; Q9967

== ENCOUNTER → 2022-02-18 12:01 | Outpatient (CLI) | payer OTHER, MEDICAID, SELFPAY ==
[2021-06-26 17:22] VITALS: BMI 44.8
--- NOTE | 2022-02-18 12:03 | DI.ECHO.S_ITS ---
[facility]---------+ [facility] +---------+ : : [id number] [place] [address] : : : : [id number] : : : : Phone: [phone]+ Echocardiogram Report + + :Name: CASSANDRA MORRIS V Study Date: 02/18/2022 Height: 63 in : :[facility] ReadingLocation: Weight: 246 lb : : Gender: Female BSA: 2.1 m2 : :: 1980 Age: 42 yrs BP: 149/87 mmHg: :Reason For Study: CARDIOMYOPATHY : :Ordering Physician: YEHUDA, : :SABINE Performed By: Jo Ann Costa : :Referring: SABINE TRINH : + + Interpretation Summary Limited Echo: 1) Moderately increased left ventricular thickness (concentric) with normal size, normal wall motion, and normal systolic function (EF 60-65%. 2) Compared to the Echo done 06/28/2021, LVEF has imnproved from 45-50% to 60- 65% on this study. Procedure: A two-dimensional transthoracic echocardiogram with color flow and Doppler was performed in limited views only to assess ejection fraction and wall motion.. The study quality was technically adequate. Comparison is made with the echocardiogram of 06/28/2021. The patient was in sinus rhythm with heart rates between 64-72 bpm during the exam. Left Ventricle: The left ventricle is normal in size. There is moderate concentric left ventricular hypertrophy. The ejection fraction is estimated to be 60-65%. Left ventricular systolic function appears normal without focal wall motion abnormalities. Right Ventricle: The right ventricle is normal in size and function. Atria: Right atrial size is normal. Great Vessels: The IVC is of normal diameter and collapses greater than 50% with a sniff. This suggests a low right atrial pressure of 3 mm Hg. Pericardium/ Pleura There is no pericardial effusion. There is no pleural effusion. MMode/2D Measurements & Calculations LVIDd: 4.5 cm LA A4 area: 22.1 cm2 LVIDs: 3.0 cm LA length (vol): 5.5 cm FS: 32.5 % IVSd: 1.6 cm LVPWd: 1.5 cm LV osfia. diameter/BSA (cm/m^2): 2.1 LV sys. diameter/BSA (cm/m^2): 1.4 RA long axis: 5.3 cm RVD1 (basal): 3.5 cm RA area: 16.1 cm2 RVD2 (mid): 3.1 cm RA vol: 41.4 ml TAPSE: 2.2 cm RA : 19.6 ml/m2 IVC diam: 1.9 cm Reading Physician:02:27 PM
== END ==
PROVIDERS: PCP Physician Assistant; Referring Provider Internal Medicine Cardiovascular Disease; Visit Provider Internal Medicine Cardiovascular Disease
DX: I42.9 Cardiomyopathy, unspecified (principal); I51.7 Cardiomegaly
CPT/HCPCS: 93307

== ENCOUNTER 2024-07-20 16:25 | Emergency (ER) | payer OTHER, SELFPAY ==
[2021-06-26 17:22] VITALS: BMI 44.8
[2024-07-20 16:45] VITALS: BP 171/91; PULSE 61; RESP 18; TEMP 36.8; O2SAT 96; BMI 42.5
[2024-07-20 17:35] LABS: Alanine Aminotransferase 205 IU/L (<35); Albumin 4.7 g/dL (3.5-5.0); Albumin Globulin Ratio 1.4 (1.0-2.8); Alkaline Phosphatase 124 U/L (38-126); Aspartate Aminotransferase 135 IU/L (14-36); BUN Creatinine Ratio 23.7 (6-22); Bilirubin Total 0.5 mg/dL (0.2-1.3); Blood Urea Nitrogen 18 mg/dL (7-17); Calcium 9.6 mg/dL (8.4-10.2); Carbon Dioxide 23 mmol/L (22-32); Chloride 102 mmol/L (98-107); Estimated Glomerular Filt Rate > 60 mL/min (>60); Globulin 3.4 g/dL (1.7-4.1); Glucose 123 mg/dL (70-100); HEMOLYSIS < 15 (0-50); Magnesium 1.8 mg/dL (1.6-2.3); Potassium 3.9 mmol/L (3.4-5.1); Sodium 136 mmol/L (137-145); Total Protein 8.1 g/dL (6.3-8.2)
[2024-07-20 17:40] LABS: Add Manual Diff / Slide Review NO; Basophils Absolute Auto 100 /uL (0-100); Basophils Percent Auto 0.7 % (0-2); Eosinophils Absolute Auto 500 /uL (0-450); Eosinophils Percent Auto 6.1 % (2-4); Hematocrit 41.4 % (36-46); Hemoglobin 13.3 g/dL (12.0-16.0); Lymphocytes Absolute Auto 2400 /uL (1100-4500); Lymphocytes Percent Auto 27.1 % (25-40); Mean Corpuscular HGB Conc 32.1 % (30-36); Mean Corpuscular Hemoglobin 25.8 PG (26-34); Mean Corpuscular Volume 80.4 fL (80-100); Monocytes Absolute Auto 500 /uL (0-900); Monocytes Percent Auto 5.2 % (3-14); Neutrophils Absolute Auto 5500 /uL (1500-7000); Neutrophils Percent Auto 60.9 % (50-75); Platelet Count 298 X10^3/uL (150-400); Red Blood Cell Count 5.15 X10^6/uL (4.0-5.2); Red Cell Distribution Width 17.7 % (11.6-14.8)
[2024-07-20 20:05] VITALS: BP 139/89; PULSE 71; RESP 16; TEMP 36.5; O2SAT 97
--- NOTE | 2024-07-20 21:29 | ED_ITS ---
HPI - Recheck/Abnormal Lab/Rx General Chief Complaint: Recheck/Abnormal Lab/Rx Stated Complaint: fatigue, sob, fringer cramps, dizziness Time Seen by Provider: 07/20/24 20:39 Source: patient Mode of arrival: Ambulatory History of Present Illness HPI narrative: 44-year-old woman with a history of asthma, hypertension, type 2 diabetes, Hypertension, hyperlipidemia and low iron presumably due to heavy menstrual flow who presents today with multiple concerns. Was unable to schedule an appointment with her primary care provider and instructed by them to go to the walk-in clinic or the emergency department. Specific complaints today include gradually increasing fatigue, increasing episodes of finger cramps, slight increase in her overall dyspnea, in the last 2-3 days she has been having dizzy spells, not waking up to alarms is concerned that her sclera are increasingly Mcke[place], her restless legs have increased and she notes she wants to eat ice cream when she is drinking cold drinks. She notes that this morning she had a double wall upper and has not felt dizzy since then. She has a list of blood sugars that have all been under 200, blood pressure is with the highest being 170/90 and the average is being in the 130-1 40/80 range. Heart rate is consistently in the 70s to 80s. Numbers are reviewed for the last month Related Data Previous Rx's Medication Instructions Recorded albuterol sulfate 90 mcg/actuation 2 puff INH Q4HP PRN #1 inh 07/05/16 aerosol inhaler (Ventolin HFA) amoxicillin 875 mg-potassium 1 tab PO Q12H #28 tabs 06/29/21 clavulanate 125 mg tablet (Augmentin) furosemide 20 mg tablet 20 mg PO DAILY #30 tabs 06/29/21 hydralazine 25 mg tablet 25 mg PO Q8HR #90 tabs 06/29/21 labetalol 300 mg tablet 300 mg PO BID #60 tabs 06/29/21 losartan 100 mg tablet 100 mg PO DAILY #30 tabs 06/29/21 montelukast 10 mg tablet 10 mg PO DAILY #30 tabs 06/29/21 (Singulair) Allergies Allergy/AdvReac Type Severity Reaction Status Date / Time nicardipine AdvReac Intermediate Wheezing Verified 07/20/24 16:45 Review of Systems Review of Systems Narrative: Pertinent positive and negative findings as per HPI Patient History Medical History (Updated 07/20/24 @ 21:49 by Aliyah Lamb MD) Low iron Hyperlipidemia Diabetes Asthma Hypertension Social History household members: none Smoking Status: Former smoker alcohol intake: current Smoking Status: Former smoker alcohol intake frequency: holidays/special occasions only Exam Initial Vital Signs Initial Vital Signs: Vital Signs Temperature 98.3 F 07/20/24 16:45 Pulse Rate 61 07/20/24 16:45 Respiratory Rate 18 07/20/24 16:45 Blood Pressure 171/91 H 07/20/24 16:45 Pulse Oximetry 96 07/20/24 16:45 Oxygen Delivery Method Room Air 07/20/24 16:45 General: fatigued appearing but in no acute distress. Speech is slightly slowed. She has dark circles under her eyes HEENT: Moist mucous membranes, normal sclera ( patient is concerned that they seem more mckeon)with reactive pupils, Respiratory: Lungs are clear to auscultation, no wheezing no rales no rhonchi. Full and symmetrical air movement Cardiac: Regular rate and rhythm no murmurs no bruits Abdomen: Soft, nontender, good bowel tones, no flank pain Skin: Warm and dry, no rashes, good capillary refill Neurologic: Grossly neurologically intact with no obvious asymmetries or abnormalities Extremities: No trauma, well perfused, no lower extremity edema Psych: Cooperative, appropriate insight and affect Course Orders Ordered: ED Orders 07/20/24 17:14 Complete Blood Count AUTO DIFF Stat Comprehensive Metabolic Panel Stat Magnesium Stat Vital Signs Vital signs: Vital Signs - 8 hr 07/20/24 16:45 07/20/24 20:05 Temperature 98.3 F 97.7 F Pulse Rate 61 71 Respiratory Rate 18 16 Blood Pressure 171/91 H 139/89 Pulse Oximetry 96 97 Oxygen Delivery Method Room Air Room Air MDM - Recheck/Abnormal Lab/Rx Lab Data 07/20/24 17:14 07/20/24 17:14 Labs: Lab Results 07/20/24 Range/Units 17:14 WBC 9.0 (4.5-11.0) X10^3/uL RBC 5.15 (4.0-5.2) X10^6/uL Hgb 13.3 (12.0-16.0) g/dL Hct 41.4 (36-46) % MCV 80.4 (80-100) fL MCH 25.8 L (26-34) PG MCHC 32.1 (30-36) % RDW 17.7 H (11.6-14.8) % Plt Count 298 (150-400) X10^3/uL Neut % (Auto) 60.9 (50-75) % Lymph % (Auto) 27.1 (25-40) % [place] % (Auto) 5.2 (3-14) % Eos % (Auto) 6.1 H (2-4) % Baso % (Auto) 0.7 (0-2) % Neut # (Auto) 5500 (7605-1846) /uL Lymph # (Auto) 2400 (5823-7004) /uL [place] # (Auto) 500 (0-900) /uL Eos # (Auto) 500 H (0-450) /uL Baso # (Auto) 100 (0-100) /uL Sodium 136 L (137-145) mmol/L Potassium 3.9 (3.4-5.1) mmol/L Chloride 102 (98-107) mmol/L Carbon Dioxide 23 (22-32) mmol/L BUN 18 H (7-17) mg/dL Creatinine 0.76 (0.52-1.04) mg/dL Estimated GFR > 60 (>60) mL/min BUN/Creatinine Ratio 23.7 H (6-22) Glucose 123 H (70-100) mg/dL Calcium 9.6 (8.4-10.2) mg/dL Magnesium 1.8 (1.6-2.3) mg/dL Total Bilirubin 0.5 (0.2-1.3) mg/dL AST 135 H (14-36) IU/L ALT 205 H (<35) IU/L Alkaline Phosphatase 124 (38-126) U/L Total Protein 8.1 (6.3-8.2) g/dL Albumin 4.7 (3.5-5.0) g/dL Globulin 3.4 (1.7-4.1) g/dL Albumin/Globulin Ratio 1.4 (1.0-2.8) MDM Narrative Medical decision making narrative: CC: increasing chronic problems unable to get into a primary care physician, in the last 2-3 days dizzy spells, not waking to alarms, restless legs Complicating co-morbidities: low iron, diabetes, hypertension Data collected from: patient, sister Social determinants of health that may influence the patients condition: difficulty in accessing care Medical records reviewed: patient has a list of recent medical problems, current concerns that are all reviewed. This is actually beautifully presented. She also has a list on her phone of daily blood sugars, blood pressures and heart rate. All have been reasonably appropriate. current medications include furosemide 20 mg, losartan 100 mg, labetalol 300 b.i.d., hydralazine 25 mg t.i.d., fluoxetine 10 mg iron 325 mg daily, vitamin-D, omeprazole 20 mg twice a day, inhaled budesonide and fluticasone, levocetirizine 5 mg daily, as needed albuterol, Jardiance and montelukast Differential considered: iron, electrolyte abnormalities, poor sleep/sleep apnea, medication interactions Exam documented above, pertinent findings include: exam is benign. Sclera appear normal on my exam today Lab Test results independently reviewed as above. Pertinent findings: CBC is unremarkable. H and H is 13.3 and 41.4. MCV is 80.4 chemistries are reassuring. Glucose is at 1:23 a.m.. No renal abnormalities. Potassium sodium phosphorus and magnesium are all appropriate. She does have a slight increase to ALT and AST compared to 2 years ago. AST 135, ALT 205 Discussion: 44-year-old woman with complaints of dizziness, fatigue, hand cramping and poor access to her primary care physician. Exam is benign, lab work is benign. I am not finding an emergency issue that I am able to further address were influence today. It does look like her blood pressure and blood sugars are appropriately controlled. I will refer her back to her primary care physician thoughts on continued care include sleep study for sleep apnea and further discussion regarding mood and consideration of increasing her fluoxetine dose. There was no indication for hospitalization or additional imaging and she is safe for discharge Discharge Plan Departure Patient Disposition: Home Clinical Impression: Cramp in muscle Fatigue Qualifiers: Fatigue type: chronic, unspecified Qualified Code(s): R53.82 - Chronic fatigue, unspecified Activity Restrictions/Additional Instructions: thank you for coming in today, I am sorry that you are not feeling 100% your blood work is actually quite reassuring. Regarding your fatigue and finger cramps, you are not significantly anemic, your red blood cells are slightly small but not enough that makes me think that you are dramatically low on iron. I would continue taking your iron supplementation. Iron needs to be absorbed in an acidic environment. If you are taking your iron at the same time you are taking your omeprazole it is probably not being absorbed. I would recommend spreading out those 2 doses and adding a vitamin-C supplement when you take the iron for better absorption reviewing your blood pressure numbers over the last month the seem fairly reasonable. I would not make any recommendations to change blood pressure medications currently also regarding finger cramping, your kidney function, potassium, sodium, magnesium and calcium levels are all and appropriate levels with her overall fatigue I would suggest that you discuss a sleep study with your primary care physician. It may be appropriate to also discuss depression and see if your dose of current fluoxetine might be increased if you find you have acute symptoms or additional questions please feel free to return to the ER Prescriptions: No Action albuterol sulfate [Ventolin HFA] 90 MCG/PUFF HFA aerosol inhaler 2 puff INH Q4HP PRNQty: 1 0RF hydralazine 25 mg Tablet 25 mg PO Q8HR Qty: 90 0RF furosemide 20 mg Tablet 20 mg PO DAILY Qty: 30 0RF losartan 100 mg tablet 100 mg PO DAILY Qty: 30 0RF labetalol 300 mg tablet 300 mg PO BID Qty: 60 0RF amoxicillin-pot clavulanate [Augmentin] 875-125 mg tablet 1 tab PO Q12H Qty: 28 0RF montelukast [Singulair] 10 mg tablet 10 mg PO DAILY Qty: 30 0RF Referrals: Sarah Montes De Oca PA-C [Primary Care Provider] - Stand Alone Forms: Patient Portal/API/Survey
== END 2024-07-20 21:50 | disposition home or self-care (01) ==
PROVIDERS: Emergency Medicine; Emergency Provider Emergency Medicine; PCP Physician Assistant
DX: R53.82 Chronic fatigue, unspecified (principal); R25.2 Cramp and spasm; R42 Dizziness and giddiness; R06.00 Dyspnea, unspecified
CPT/HCPCS: 80053; 83735; 85025; 99281; 99283